=== PATIENT | male | born 1945 | race Caucasian/White ===

== ENCOUNTER → 2016-06-07 | Outpatient (CLI) | payer MEDICARE, BC ==
[2016-06-07 07:40] LABS: Appearance,Urine Clear (Clear); Bilirubin,Urine Negative (Negative); Glucose,Urine (UA) Negative (Negative); Ketones,Urine Negative (Negative); Leukocyte Esterase,Urine Large (Negative); Mucus,Urine Rare /hpf; Nitrite,Urine Negative (Negative); PH, Urine 5.5 (5.0-8.0); Particle Count 3728; Protein,Urine Trace (Negative); RBC,Urine 2 /hpf (0-5); Specific Gravity,Urine 1.021 (1.001-1.035); Squamous Epithelial Cell,Urine <1 /hpf (0-4); UA Billing (MACRO vs. MICRO) MICRO; Urobilinogen,Urine <2.0 mg/dL (<2.0); WBC,Urine 74 /hpf (0-5)
[2016-06-07 08:07] LABS: Prothrombin Time 10.1 sec (9.0-12.0)
[2016-06-07 08:14] LABS: Basophils # (A) 0.1 k/uL (0-0.2); Basophils % (A) 1 %; CH 31.2; CHCM 34.5; Eosinophils # (A) 0.4 k/uL (0-0.7); Eosinophils % (A) 8 %; HCT 44.9 % (39.0-53.0); HDW 3.19; HGB 14.8 gm/dL (13.0-17.5); Luc # (Auto) 0.13; Luc % (Auto) 3; Lymphocytes # (A) 1.1 k/uL (1.0-4.8); Lymphocytes % (A) 24 %; MCH 30.1 pg (25.0-35.0); MCHC 33.1 g/dL (31.0-37.0); Mean Platelet Volume 7.8; Monocytes # (A) 0.4 k/uL (0-1.0); Monocytes % (A) 7 %; Neutrophils # (A) 2.8 k/uL (1.3-7.7); Neutrophils % (A) 58 %; RBC 4.93 m/uL (4.30-5.90); RDW 13.9 % (11.5-15.5); WBC 4.9 k/uL (3.8-10.6); WBC (Perox) 5.05
[2016-06-07 08:34] LABS: ALT 39 U/L (21-72); AST 34 U/L (17-59); Alkaline Phosphatase 55 U/L (38-126); Anion Gap 11 mmol/L; Blood Urea Nitrogen 20 mg/dL (9-20); Calcium 9.9 mg/dL (8.4-10.2); Carbon Dioxide 31 mmol/L (22-30); Chloride 101 mmol/L (98-107); Glucose 117 mg/dL (74-99); Non-African American GFR(MDRD) >60 (>60 ml/min/1.73 sqM); Potassium 4.1 mmol/L (3.5-5.1); Sodium 143 mmol/L (137-145); Total Bilirubin 1.2 mg/dL (0.2-1.3); Total Protein 6.7 g/dL (6.3-8.2)
== END | disposition home or self-care (01) ==
LOC: LABPAT 06:34
PROVIDERS: ATTEND Orthopaedic Surgery
DX: Z01.812 Encounter for preprocedural laboratory examination (principal)
CPT/HCPCS: 80053; 81001; 85025; 85610; 85730; 87070

== ENCOUNTER 2016-06-21 10:39 | Inpatient (IN) | payer MEDICARE, BC ==
[2016-06-10 14:40] VITALS: BMI 32.5
[~2016-06-21 10:39] MED LIST: ACETAMINOPHEN TAB 500 MG TAB PO ONE; DEXAMETHASONE SOD PHOSPHATE 10 MG/ML 1 ML VIAL IV ONE; HYDROmorphone 1 MG/ML 1 ML SYRINGE IVP PRN; LIDOCAINE 1% 20 ML VIAL (10MG/ML) FOR IV START INTRADERMA PRN; MELOXICAM 7.5 MG TAB PO ONE; ONDANSETRON 4 MG/2 ML VIAL IVP ONE; TRANEXAMIC ACID 1,000 MG in SODIUM CHLORIDE 0.9% 100 ML IVPB ONE; ceFAZolin 2 GM in SODIUM CHLORIDE 0.9% 100 ML IVPB ONE
[2016-06-21] MEDS ORDERED: ROPIVACAINE 246.25 MG, EPINEPHrine 0.5 MG, KETOROLAC 30 MG, cloNIDine HCL/PF 80 MCG, WA... MISCELLANE ONE ×5 (11:25)
[2016-06-21] MEDS: LACTATED RINGERS 1,000 ML IV SCH (11:37)
[2016-06-21 12:01] LABS: Glucose,Whole Blood 105 mg/dL (75-99)
[2016-06-21] MEDS ORDERED: MIDAZOLAM 2 MG/2 ML VIAL IV ONE ×2 (12:09→12:10)
[2016-06-21] MEDS ORDERED: HYDROCORTISONE SUCCINATE 100 MG/2 ML VIAL IV ONE (12:30)
[2016-06-21] MEDS ORDERED: LIDOCAINE 1% INJ 10MG/ML (20 ML MDV) ONE (12:47)
[2016-06-21] MEDS ORDERED: fentaNYL (PF) 50 MCG/ML 2 ML AMP ONE (12:47)
[2016-06-21] MEDS ORDERED: ePHEDrine 50 MG/ML 1 ML AMP ONE (12:47)
[2016-06-21] MEDS ORDERED: PROPOFOL 10 MG/ML 20 ML VIAL IV ONE (12:47)
[2016-06-21] MEDS ORDERED: MIDAZOLAM 2 MG/2 ML VIAL ONE (12:47)
[2016-06-21] MEDS ORDERED: ceFAZolin 3,000 MG in SODIUM CHLORIDE 0.9% IRRIGATIO 3,000 ML IRRIGATION ONE (13:22)
[2016-06-21] MEDS ORDERED: LACTATED RINGERS 1,000 ML IV ONE (13:48)
[2016-06-21] MEDS ORDERED: ROPIVACAINE 1,100 MG, SODIUM CHLORIDE 0.9% 330 ML MISCELLANE PRN ×2 (14:14)
--- NOTE | 2016-06-21 14:16 | P.ONQ ---
Anesthesiology Proc Note - PNB - Peripheral Nerve Block Performed Right Adductor Canal Infusion Time Out Performed: Yes Procedure Start Time: 12:10 Procedure Stop Time: 12:20 Indication: Acute Post-Operative Pain, Requested by physician Sedation Type: Awake Preparation: Sterile Dressing Position: Supine Needle Types: Other (see comment) Needle Size: 100mm (4") Needle Gauge: 21 Technique: Ultrasound Injectate: 0.5% Ropivacaine (see comment for volume) (ropi .5 %) Blood Aspirated: No Pain Paresthesia on Injection Noted: No Resistance on Injection: Normal Events: Uneventful and Well Tolerated
--- NOTE | 2016-06-21 14:20 | P.OP ---
Date of Procedure: 06/21/16 Preoperative Diagnosis: Severe osteoarthritis right knee Postoperative Diagnosis: Severe osteoarthritis right knee Procedure(s) Performed: Right total knee arthroplasty Implants: Diallo and Nephew Oxinium femoral component size 6, right Diallo & Nephew Roseanna II right nonporous tibial baseplate size 7 Diallo & Nephew size 13 mm Legion XLPE dished articular insert, size 7-8 Diallo [employer] Nephew Roseanna II resurfacing patellar component, 35 mm All components were cemented using Fito bone cement.. The articulation is ceramic on polyethylene. Anesthesia: spinal Surgeon: Helio Camp Magazine Worker #1: Kathryn Alvarez Magazine Worker #2: Aditi Villasenor Estimated Blood Loss (ml): 50 Pathology: other (Bone and cartilage) Condition: stable Disposition: PACU Indications for Procedure: After failure of conservative treatment we discussed the surgical and nonsurgical treatment options at length. Patient wishes to proceed with a total knee arthroplasty. Complications specific to this procedure were discussed at length, including but not limited to infection, bleeding, stiffness , and nerve injury. Patient is aware of all these complications and informed consent was obtained Operative Findings: The operative findings are consistent with severe osteoarthritis of the right knee Description of Procedure: Patient was seen in the preoperative area consent was reviewed and operative site was marked with a skin marker. An adductor canal pain catheter was placed by anesthesia in the preoperative area. Patient was then brought to the operating room and given preoperative antibiotics intravenously. A spinal anesthetic was administered by the anesthesia department. A tourniquet was placed on the upper thigh and the lower extremity was prepped and draped in usual sterile fashion. A gram of transexamic acid was given. A universal timeout was then performed which confirmed the patient's name, surgical site, ALLERGIES, and consent. The lower extremity was then exsanguinated and tourniquet was inflated to 250 mmHg. A standard and anterior midline approach to the knee was performed. The skin and subcutaneous tissue was dissected down to the patellar tendon. A medial parapatellar arthrotomy was then performed. The knee was then extended, the patellar was everted, and the knee was again flexed. Anterior horns of both menisci were excised, and a release was performed to the posterior medial aspect of the knee. On gross visual inspection, there was complete loss of articular cartilage in the medial and patellofemoral joint spaces. There was also significant cartilage damage in the lateral compartment. There were multiple periarticular osteophytes which were then removed with a Ronguer. The femoral canal was then opened with the appropriate drill, and the intramedullary femoral cutting guide was then placed and set for 4 of valgus. The distal femoral cutting block was then pinned in place, and the distal femur was then cut. The cutting block was then removed and the cut was checked for flatness. Next, the sizing guide was then placed and set for 3 external rotation based off of the epicondylar axis and Whitesides line. After the femur was sized, the appropriate 4-in-1 cutting block was then pinned in place. The anterior condyles were cut without notching. The posterior and chamfer cuts were performed while protecting the collateral ligaments. The cutting block was then removed, and the femoral canal was plugged with autologous bone. Attention was then directed to the tibia. The remaining ACL was removed with a Ronguer, and the tibia was then gently subluxed forward with a large bent knee retractor. Any remaining menisci was excised. The posterior lateral corner was cauterized in order to cauterize the lateral geniculate artery. The extra medullary tibial cutting guide was then placed, set for the appropriate rotation , slope, and depth of resection. The proximal tibia cutting guide was then pinned in place. Proximal tibia was then cut and sized. Next trials were then placed with the appropriate-sized insert. The knee was able to fully extend and flex to 130 and was stable throughout all range of motion. The knee was then extended, patella everted. Patella was then measured, and then using an osteotomy guide, the patella was cut at the appropriate level. The patella was then measured and drilled and the patella trial was then placed. The knee was then taken through range of motion with the patella trial and the patella tracked normally. The knee was then extended patella trial was then removed and the patella was everted. Knee was then flexed and lug holes were drilled through the femoral trial and the femoral trial was then removed. The tibial was then exposed, and the tibial broach guide was then pinned in place after it was set for the appropriate rotation to allow for the most coverage without overhang. The tibia was then reamed and broached. The cut surfaces of bone were then irrigated with pulsatile lavage. The posterior structures were injected with the ropivacaine solution. The knee was also irrigated with Irrisept solution. The components were then opened, the cement was mixed, and the components were then cemented in place. The cement was allowed to harden with the knee in full extension. While the cement was hardening, the remaining soft tissues were then injected with a ropivacaine solution, which consisted of 246.25 mg of ropivacaine, 0.5 mg of epinephrine, 30 mg of Toradol, 80 g of clonidine, and 48.45 mL of sterile water, for a total of 100 mL of fluid injected. After the cemented hardened. The tourniquet was released, and hemostasis was obtained. A second gram of transexamic acid was given. The knee was again irrigated. The knee was again taken through range of motion and found to be stable throughout all range of motion of 0-130 , and the patella tracked normally. The fascia was then closed with #2 strata fix suture. The subcutaneous tissue was closed with 3-0 Vicryl and 3-0 strata fix. Dermabond tape was used for the skin and placed with the knee in flexion. The patient was placed in a sterile dressing. Patient was then transferred to recovery room in stable condition. The pest controller assistant ELISHA Reyes was required due the complexity surgery and the need for a skilled rn neurosurgical. She assisted in positioning, draping , retraction, and closure of the wound.
[2016-06-21] MEDS ORDERED: ONDANSETRON 4 MG/2 ML VIAL IVP PRN (14:44)
[2016-06-21] MEDS ORDERED: NA PHOS,M-B/NA PHOS,DI-BA 133 ML ENEMA RECTAL PRN (14:44)
[2016-06-21] MEDS ORDERED: BISACODYL 10 MG SUPP RECTAL PRN (14:44)
[2016-06-21] MEDS ORDERED: HYDROmorphone 1 MG/ML 1 ML SYRINGE IVP PRN ×3 (14:44)
[2016-06-21] MEDS ORDERED: hydrOXYzine PAMOATE 25 MG CAP PO PRN (14:44)
[2016-06-21] MEDS ORDERED: NALOXONE 0.4 MG/ML 1 ML VIAL IV PRN (14:44)
[2016-06-21] MEDS ORDERED: MAGNESIUM HYDROXIDE 2,400 MG/10 ML CUP PO PRN (14:44)
[2016-06-21] MEDS ORDERED: DIAZEPAM 5 MG TAB PO PRN (14:44)
[2016-06-21] MEDS ORDERED: HYDROcodone/APAP 5-325MG 1 EACH TAB PO PRN (14:44)
[2016-06-21 15:04] VITALS: RESP 16
--- NOTE | 2016-06-21 15:06 | XR ---
EXAMINATION TYPE: XR knee limited RT DATE OF EXAM: 06/21/2016 3:01 PM COMPARISON: NONE HISTORY: 71-year-old male evaluation for postoperative abnormality and alignment TECHNIQUE: 2 views FINDINGS: Images show placement of right total knee arthroplasty. Both distal femoral and proximal tibial compo nents of the prosthesis appear well seated without periprosthetic fracture. Alignment is grossly ashley omic. Anterior soft tissue swelling with soft tissue gas as well as intra-articular air and joint eff usion compatible with recent operation. IMPRESSION: Uncomplicated postoperative appearance right total knee arthroplasty.
[2016-06-21] MEDS: SODIUM CHLORIDE 0.9% 1,000 ML IV SCH (15:53)
[2016-06-21] MEDS: ceFAZolin 2 GM in SODIUM CHLORIDE 0.9% 100 ML IVPB SCH (22:00)
[2016-06-21] MEDS: SENNOSIDES-DOCUSATE SODIUM 1 EACH TAB PO SCH (22:00)
[2016-06-21] MEDS: ASPIRIN 325 MG TAB PO SCH (23:10)
[2016-06-21] MEDS: cloNIDine HCL 0.1 MG TAB PO SCH (23:10)
[2016-06-21] MEDS: CITALOPRAM HYDROBROMIDE 10 MG TAB PO SCH (23:10)
[2016-06-21] MEDS: GABAPENTIN 300 MG CAP PO SCH (23:10)
[2016-06-21] MEDS: MAGNESIUM OXIDE 400 MG TAB PO SCH (23:11)
[2016-06-21] MEDS: HYDROcodone/APAP 5-325MG 1 EACH TAB PO PRN (23:11)
[2016-06-21] MEDS: HYDROXYCHLOROQUINE SULFATE 200 MG TAB PO SCH (23:11)
[2016-06-22] MEDS: clonazePAM 0.5 MG TAB PO SCH ×2 (00:17→22:12)
[2016-06-22] MEDS: SODIUM CHLORIDE 0.9% 1,000 ML IV SCH ×2 (04:02→22:13)
[2016-06-22] MEDS: ceFAZolin 2 GM in SODIUM CHLORIDE 0.9% 100 ML IVPB SCH (04:02)
[2016-06-22] MEDS: HYDROcodone/APAP 5-325MG 1 EACH TAB PO PRN ×4 (04:47→21:57)
[2016-06-22] MEDS: LEVOTHYROXINE 50 MCG TAB PO SCH (06:03)
[2016-06-22] MEDS: LACTATED RINGERS 1,000 ML IV SCH (06:08)
[2016-06-22] MEDS ORDERED: LEVOTHYROXINE 50 MCG TAB PO SCH (06:30)
--- NOTE | 2016-06-22 07:39 | P.CONS ---
History of Present Illness - Reason for Consult Consult date: 06/21/16 Medical management Requesting physician: Helio Camp - Chief Complaint Right total knee arthroplasty, dermatomyositis, hypertension, hyperlipidemi - History of Present Illness 71-year-old male one of my office patient of known for long time with history of prostate cancer history of dermatomyositis lupus skin cancer prostate cancer was been suffering from severe arthritis and increase pain and discomfort and swelling for the last 2 years with failure to conservative management for the last 3 years. Patient had seen Dr. Camp and plan for elective right total knee arthroplasty. Surgery was done today successfully with no major complication patient is doing well postsurgery. Hemodynamically is very stable and pain is well controlled. Review of Systems Constitutional: Reports chronic pain, Reports fatigue, Reports malaise, Reports poor appetite, Reports weakness, Reports weight loss, Denies as per HPI, Denies anorexia, Denies chills, Denies chronic headaches, Denies daytime sleepiness, Denies fever, Denies lethargy, Denies night sweats, Denies sweats, Denies weight gain Eyes: bilateral as per HPI Ears: deny: decreased hearing Ears, nose, mouth and throat: Reports ant. neck pain, Reports nasal congestion, Reports sinus pressure, Denies as per HPI, Denies bleeding gums, Denies dental pain, Denies dysphagia, Denies epistaxis, Denies headache, Denies hoarseness, Denies mouth pain, Denies nasal discharge, Denies neck fullness/pressure, Denies neck lump, Denies nose pain, Denies odynophagia, Denies post-nasal drip, Denies sinus pain, Denies swelling in throat, Denies sore throat, Denies vertigo , Denies voice changes Cardiovascular: Reports decreased exercise tolerance, Reports orthopnea, Reports rapid heart beat, Reports shortness of breath, Denies as per HPI, Denies chest pain, Denies claudication, Denies dyspnea on exertion, Denies edema , Denies high blood pressure, Denies irregular heart beat, Denies leg edema, Denies lightheadedness, Denies palpitations, Denies paroxysmal nocturnal dyspnea , Denies phlebitis, Denies syncope Respiratory: Reports congestion, Denies as per HPI, Denies cough, Denies cough with sputum, Denies dyspnea, Denies excessive sputum, Denies hemoptysis, Denies home oxygen, Denies pain, Denies pain on inspiration, Denies pleurisy, Denies respiratory infections, Denies sleep apnea, Denies snoring, Denies wheezing Gastrointestinal: Reports abdominal pain, Reports dyspepsia, Reports indigestion , Reports melena, Denies as per HPI, Denies belching, Denies bloating, Denies BRBPR, Denies change in bowel habits, Denies coffee ground emesis, Denies constipation, Denies diarrhea, Denies early satiety, Denies excessive gas, Denies heartburn, Denies hematemesis, Denies hematochezia, Denies jaundice, Denies lactose intolerance, Denies loss of appetite, Denies nausea, Denies vomiting Genitourinary: Reports dysuria, Reports urinary frequency, Reports urinary hesitancy, Denies as per HPI, Denies decreased libido, Denies difficulties fathering child, Denies discharge, Denies erectile dysfunction, Denies flank pain, Denies genital pain, Denies genital sores, Denies hematuria, Denies impotence, Denies incontinence, Denies kidney stones, Denies nocturia, Denies polyuria, Denies testicular lump, Denies testicular pain, Denies urinary retention Musculoskeletal: Reports arm numbness/tingling, Reports low back pain, Reports neck pain, Denies as per HPI, Denies atrophy, Denies fractures, Denies frequent falls, Denies gait dysfunction, Denies hot joints, Denies leg numbness/tingling , Denies limitation of motion, Denies loss of height, Denies morning stiffness, Denies muscle cramps, Denies muscle weakness, Denies myalgias, Denies neck stiffness, Denies prior amputations, Denies redness of joints, Denies shooting arm pain, Denies shooting leg pain Musculoskeletal: bilateral: ankle pain Integumentary: Reports rash, Reports sores, Denies as per HPI, Denies acne, Denies boils, Denies brittle nails, Denies change in hair/nails, Denies color changes, Denies darkening of skin, Denies depigmentation, Denies dryness, Denies foot/leg ulcers, Denies growths, Denies hirsutism, Denies lesions, Denies onychomycosis, Denies pruritus, Denies striae, Denies unusual bruising, Denies wounds Neurological: Reports ataxia, Reports numbness, Reports paresthesias, Reports syncope, Reports tingling, Denies as per HPI, Denies aphasia, Denies balance difficulties, Denies burning pain, Denies change in mentation, Denies change in smell/taste, Denies change in speech, Denies confusion, Denies convulsions, Denies double vision, Denies gait dysfunction, Denies head injury, Denies headaches, Denies hearing difficulties, Denies lack of coordination, Denies loss of vision, Denies memory loss, Denies migraines, Denies motor disturbance, Denies paralysis, Denies seizures, Denies sensory deficit, Denies spasticity, Denies tic, Denies transient paralysis, Denies tremors, Denies vertigo, Denies weakness, Denies visual changes Psychiatric: Reports anhedonia, Reports anxiety, Reports anxiety attacks, Reports depression, Reports mood swings, Denies as per HPI, Denies change in appetite, Denies change in libido, Denies change in sleep habits, Denies confusion, Denies difficulty concentrating, Denies disorientation, Denies hallucinations, Denies hopelessness, Denies hypersomnia, Denies insomnia, Denies irritability, Denies memory loss, Denies paranoia, Denies sadness/ tearfulness, Denies sleep disturbances, Denies suicidal ideation Endocrine: Reports cold intolerance, Reports polyuria, Reports proptosis, Denies as per HPI, Denies deepening of the voice, Denies excessive sweating, Denies excessive thirst, Denies fatigue, Denies flushing, Denies heat intolerance, Denies high blood sugars, Denies increase in ring/shoe/hat size, Denies low blood sugars, Denies nocturia, Denies palpitations, Denies polydipsia , Denies polyphagia, Denies recent glucocorticoid use, Denies thyroid mass, Denies weight change Hematologic/Lymphatic: Reports easy bruising Allergic/Immunologic: Denies as per HPI, Denies allergic rhinitis, Denies anaphylaxis, Denies angioedema, Denies gluten intolerance, Denies persistent infections, Denies seasonal allergies, Denies urticaria, Denies wheezing Past Medical History Past Medical History: Cancer, Hypertension, Prostate Disorder Additional Past Medical History / Comment(s): dermatomyositis lupus,daily prednisone,basal cell skin Ca removed,enlarged prostate,stated "recent ceftin tx for UTI-seen by Dr Mena and UA repeated-cleared on 06-16-16" History of Any Multi-Drug Resistant Organisms: None Reported Past Surgical History: Hernia Repair, Joint Replacement, Orthopedic Surgery Additional Past Surgical History / Comment(s): muscle bx's,rt tot hip,rt knee scope,rt inguinal and umbilical hernia repair,rt hand carpel tunnel x2,lt hand carpel tunnel,hemorrhoidectomy Past Anesthesia/Blood Transfusion Reactions: No Reported Reaction Additional Past Anesthesia/Blood Transfusion Reaction / Comm: no hx blood transfusion Past Psychological History: Depression Smoking Status: Former smoker Past Alcohol Use History: Occasional Additional Past Alcohol Use History / Comment(s): quit smoking 1997,smoked 1ppd 15 yrs approx Past Drug Use History: None Reported - Past Family History Mother Family Medical History: No Reported History Father Family Medical History: Cancer Medications and Allergies Home Medications Medication Instructions Recorded Confirmed Type Allopurinol [Allopurinol] 300 mg PO QAM 06/10/16 06/21/16 History Aspirin 81 mg PO DAILY 06/10/16 06/21/16 History Calcium Carbonate/Vitamin D3 2 tab PO DAILY 06/10/16 06/21/16 History [Calcium 600-Vit D3 400 Caplet] Citalopram Hydrobromide [CeleXA] 10 mg PO HS 06/10/16 06/21/16 History Folic Acid 0.4 mg PO DAILY 06/10/16 06/21/16 History Gabapentin [Neurontin] 300 mg PO BID 06/10/16 06/21/16 History Hydroxychloroquine Sulfate 200 mg PO BID 06/10/16 06/21/16 History [Plaquenil] Levothyroxine Sodium [Synthroid] 50 mcg PO QAM 06/10/16 06/21/16 History Losartan/Hydrochlorothiazide 1 tab PO QAM 06/10/16 06/21/16 History [Hyzaar 100-25 Tablet] Magnesium Oxide [Mag-Ox] 400 mg PO HS 06/10/16 06/21/16 History cloNIDine HCL [Catapres] 0.1 mg PO BID 06/10/16 06/21/16 History clonazePAM [KlonoPIN] 0.5 mg PO HS 06/10/16 06/21/16 History predniSONE 5 mg PO QAM 06/10/16 06/21/16 History Allergies Allergy/AdvReac Type Severity Reaction Status Date / Time No Known Allergies Allergy Verified 06/21/16 15:12 Physical Exam Vitals: Vital Signs Temp Pulse Pulse Resp BP BP Pulse Ox 06/21/16 15:48 98 06/21/16 15:28 80 16 121/59 97 06/21/16 15:13 76 16 134/56 97 06/21/16 14:58 88 16 121/62 98 06/21/16 14:43 98.6 F 80 18 132/83 93 L 06/21/16 11:38 98.3 F 82 16 133/76 96 Intake and Output 06/21/16 06/21/16 06/21/16 06:59 14:59 22:59 Intake Total 1501 50 Output Total 50 Balance 1451 50 Intake: IV 1501 50 Output: Estimated Blood Loss 50 - Constitutional General appearance: no average body habitus, cooperative, no disheveled, no mild distress, no morbidly obese, no acute distress, no obese, no severe distress, no thin - EENT Eyes: no abnormal pupil, no anicteric sclerae, no disc margins sharp, no edentulous, no EOMI, no PERRLA, no fundus normal, no photophobia, no dentition normal, no poor dentition, no ptosis, no scleral icterus, normal appearance ENT: hard of hearing, no hearing grossly normal, no NA/AT, normal oropharynx, no other, no pharyngeal erythema, no thrush, no tonsillar exudates, no tonsillar swelling Ears: bilateral: normal - Neck Neck: no lymphadenopathy, normal ROM, no other, no rigidity, no stridor, no thyromegaly Carotids: bilateral: upstroke normal, upstroke delayed Thyroid: bilateral: normal size, enlarged - Respiratory Respiratory: bilateral: CTA, diminished, dullness - Cardiovascular Rhythm: regular Heart sounds: normal: S1, S2 Abnormal Heart Sounds: systolic murmur, S3 Gallop - Gastrointestinal General gastrointestinal: no absent bowel sounds, decreased bowel sounds, no distended, no hepatomegaly, no hyperactive bowel sounds, no normal bowel sounds , no organomegaly, no rigid, no scaphoid, soft, no splenomegaly, no tenderness, no umbilical hernia, no ventral hernia - Integumentary Integumentary: no calor, no cellulitis, no cyanotic, no decreased turgor, no flushed, no jaundiced, normal, no normal turgor, pale, rash, no ulcer - Neurologic Neurologic: CNII-XII intact - Musculoskeletal Musculoskeletal: gait normal, generalized weakness - Psychiatric Psychiatric: A&O x's 3, appropriate affect Results Labs: Abnormal Lab Results - Last 24 Hours (Table) 06/21/16 Range/Units 11:52 POC Glucose (mg/dL) 105 H (75-99) mg/dL Assessment and Plan Plan: 1 post right total knee arthroplasty: Stable post surgery resume home meds, continue to watch patient hemodynamic status, continue to watch patient control and patient will be on DVT phylaxis protocol. 2 history of dermatomyositis: Has been well controlled on prednisone 5 mg a day and Plaquenil 200 mg twice a day resume medication 48 hours. Continue prednisone as of now with mildly stress dose of prednisone between 10 and 20 mg daily. 3 hypertension: Has been doing well on Hyzaar 100/25 g a day along with clonidine 0.2 mg twice a day. 4 hypothyroidism: Continue levothyroxine 50 g daily. 5 restless leg syndrome: Has been on clonazepam 0.5 mg twice a day as needed. 6 neuropathy: Has been on gabapentin 300 mg twice a day. 7 depression: Continue patient on Celexa 10 mg daily. 8 GI prophylaxis: Patient be on Pepcid 20 mg daily. 9 chronic steroid use. Patient will be on prednisone 10-20 mg daily for the first 48 hours and then down to 5 mg as before. CODE STATUS: Full code. Dr. Camp thank you very much for the consult if I can be any further help to please let me know thank you
[2016-06-22] MEDS: ASPIRIN 325 MG TAB PO SCH ×2 (08:09→22:52)
[2016-06-22] MEDS: GABAPENTIN 300 MG CAP PO SCH ×2 (08:09→22:12)
[2016-06-22] MEDS: ALLOPURINOL 300 MG TAB PO SCH (08:09)
[2016-06-22] MEDS: cloNIDine HCL 0.1 MG TAB PO SCH ×2 (08:09→22:12)
[2016-06-22] MEDS: HYDROXYCHLOROQUINE SULFATE 200 MG TAB PO SCH ×2 (08:09→22:12)
--- NOTE | 2016-06-22 08:09 | P.PN ---
Progress Note - Text The patient is status post right adductor canal catheter placement. The catheter was placed for postoperative pain control, status post total right arthroplasty. Ropivacaine 0.2% is infusing at 8 mLs per hour. The patient has no complaints of right lower extremity numbness or weakness. Patient's VAS score is 0-1-10. Assessment: Patient's adductor canal catheter is in place and working appropriately. Plan: continue infusion and adjust it as needed.
[2016-06-22] MEDS: MELOXICAM 7.5 MG TAB PO SCH (08:10)
[2016-06-22] MEDS: predniSONE 10 MG TAB PO SCH (08:10)
[2016-06-22] MEDS: LOSARTAN-HCTZ 50-12.5 MG 1 EACH TAB PO SCH (08:11)
[2016-06-22] MEDS: CALCIUM CARB-VIT D 500MG-200UN 1 EACH TAB PO SCH (08:11)
[2016-06-22] MEDS: FOLIC ACID 1 MG TAB PO SCH (08:11)
[2016-06-22 08:19] LABS: Basophils % (A) 1 %; CH 31.5; CHCM 34.2; Eosinophils # (A) 0.2 k/uL (0-0.7); Eosinophils % (A) 3 %; HCT 40.7 % (39.0-53.0); HDW 3.25; HGB 13.7 gm/dL (13.0-17.5); Luc # (Auto) 0.15; Luc % (Auto) 2; Lymphocytes # (A) 1.1 k/uL (1.0-4.8); Lymphocytes % (A) 15 %; MCH 31.2 pg (25.0-35.0); MCHC 33.6 g/dL (31.0-37.0); MCV 92.7 fL (80.0-100.0); Mean Platelet Volume 7.3; Monocytes # (A) 0.5 k/uL (0-1.0); Monocytes % (A) 8 %; Neutrophils # (A) 5.1 k/uL (1.3-7.7); Neutrophils % (A) 72 %; RBC 4.39 m/uL (4.30-5.90); RDW 13.8 % (11.5-15.5); WBC 7.1 k/uL (3.8-10.6)
--- NOTE | 2016-06-22 13:46 | P.PN ---
Subjective 71-year-old male one of my office patient of known for long time with history of prostate cancer history of dermatomyositis lupus skin cancer prostate cancer was been suffering from severe arthritis and increase pain and discomfort and swelling for the last 2 years with failure to conservative management for the last 3 years. Patient had seen Dr. Camp and plan for elective right total knee arthroplasty. Surgery was done today successfully with no major complication patient is doing well postsurgery. Hemodynamically is very stable and pain is well controlled. 06/22: Hemoglobin is stable. He does have a right adductor canal catheter in place for pain management and pain is well controlled. He states he did very well with physical therapy today. Patient will plan to resume prednisone 5 mg at the time of discharge. Discharge is scheduled for tomorrow. Objective - Vital Signs Vital signs: Vital Signs Temp 97.5 F L 06/22/16 07:34 Pulse 71 06/22/16 07:34 Resp 16 06/22/16 07:34 BP 114/66 06/22/16 07:34 Pulse Ox 95 06/22/16 07:34 Intake & Output 06/21/16 06/22/16 06/22/16 18:59 06:59 18:59 Intake Total 1551 1190 240 Output Total 50 Balance 1501 1190 240 Intake: IV 1551 600 Sodium Chloride 0.9% 1, 600 000 ml @ 75 mls/hr IV . [id number] [facility] Rx#:[id number] Oral 590 240 Output: Estimated Blood Loss 50 Other: Voiding Method Urinal Toilet Urinal # Voids 2 2 - Exam General appearance: no average body habitus, cooperative, no disheveled, no mild distress, no morbidly obese, no acute distress, no obese, no severe distress, no thin - EENT Eyes: no abnormal pupil, no anicteric sclerae, no disc margins sharp, no edentulous, no EOMI, no PERRLA, no fundus normal, no photophobia, no dentition normal, no poor dentition, no ptosis, no scleral icterus, normal appearance ENT: hard of hearing, no hearing grossly normal, no NA/AT, normal oropharynx, no other, no pharyngeal erythema, no thrush, no tonsillar exudates, no tonsillar swelling Ears: bilateral: normal - Neck Neck: no lymphadenopathy, normal ROM, no other, no rigidity, no stridor, no thyromegaly Carotids: bilateral: upstroke normal, upstroke delayed Thyroid: bilateral: normal size, enlarged - Respiratory Respiratory: bilateral: CTA, diminished, dullness - Cardiovascular Rhythm: regular Heart sounds: normal: S1, S2 Abnormal Heart Sounds: systolic murmur, S3 Gallop - Gastrointestinal General gastrointestinal: no absent bowel sounds, decreased bowel sounds, no distended, no hepatomegaly, no hyperactive bowel sounds, no normal bowel sounds , no organomegaly, no rigid, no scaphoid, soft, no splenomegaly, no tenderness, no umbilical hernia, no ventral hernia - Integumentary Integumentary: no calor, no cellulitis, no cyanotic, no decreased turgor, no flushed, no jaundiced, normal, no normal turgor, pale, rash, no ulcer - Neurologic Neurologic: CNII-XII intact - Musculoskeletal Musculoskeletal: gait normal, generalized weakness - Psychiatric Psychiatric: A&O x's 3, appropriate affect - Labs CBC & Chem 7: 06/22/16 07:59 Labs: Abnormal Lab Results - Last 24 Hours (Table) 06/21/16 06/22/16 Range/Units 11:52 07:59 Plt Count 102 L (150-450) k/uL POC Glucose (mg/dL) 105 H (75-99) mg/dL Assessment and Plan Plan: 1 post right total knee arthroplasty: Stable post surgery resume home meds, continue to watch patient hemodynamic status, continue to watch patient control and patient will be on DVT phylaxis protocol. 2 history of dermatomyositis: Has been well controlled on prednisone 5 mg a day and Plaquenil 200 mg twice a day resume medication 48 hours. Continue prednisone as of now with mildly stress dose of prednisone between 10 and 20 mg daily. 3 hypertension: Has been doing well on Hyzaar 100/25 g a day along with clonidine 0.2 mg twice a day. 4 hypothyroidism: Continue levothyroxine 50 g daily. 5 restless leg syndrome: Has been on clonazepam 0.5 mg twice a day as needed. 6 neuropathy: Has been on gabapentin 300 mg twice a day. 7 depression: Continue patient on Celexa 10 mg daily. 8 GI prophylaxis: Patient be on Pepcid 20 mg daily. 9 chronic steroid use. Patient will be on prednisone 10-20 mg daily for the first 48 hours and then down to 5 mg as before. CODE STATUS: Full code. Discharge plan: Home with [facility] tomorrow Impression and plan of care have been directed as dictated by the signing physician. Katerine Baer nurse practitioner acting as scribe for signing physician. Time with Patient: Greater than 30
--- NOTE | 2016-06-22 15:30 | P.PN ---
Subjective Principal diagnosis: Status post right total knee arthroplasty This is a pleasant 71-year-old gentleman who is status post right total knee arthroplasty. Today's postoperative day #1. The patient is seen and evaluated at bedside with Dr. Helio Camp. He does complain of some posterior pain in his lower extremity. His pain is under better control. He developed physical therapy today. He has no additional complaints this time. Objective - Vital Signs Vital signs: Vital Signs Temp 98.2 F 06/22/16 13:16 Pulse 80 06/22/16 13:16 Resp 16 06/22/16 13:16 BP 128/51 06/22/16 13:16 Pulse Ox 92 L 06/22/16 13:16 Intake & Output 06/21/16 06/22/16 06/22/16 18:59 06:59 18:59 Intake Total 1551 1190 480 Output Total 50 Balance 1501 1190 480 Intake: IV 1551 600 Sodium Chloride 0.9% 1, 600 000 ml @ 75 mls/hr IV . [id number] Rx#:[id number] Oral 590 480 Output: Estimated Blood Loss 50 Other: Voiding Method Urinal Toilet Urinal # Voids 2 2 - Exam The patient does not appear in acute distress. Alert and orientated 3. Dressing is clean dry and intact. Incision appears fine with no erythema or active drainage. Calf is soft and nontender. Good foot and ankle motion without difficulty. Sensation and circulatory status is intact. - Labs CBC & Chem 7: 06/22/16 07:59 Labs: Abnormal Lab Results - Last 24 Hours (Table) 06/22/16 Range/Units 07:59 Plt Count 102 L (150-450) k/uL Assessment and Plan (1) Primary osteoarthritis of right knee Status: Acute (2) Status post right knee replacement Status: Acute Plan: 1. Continue with routine postoperative care. 2. Anticoagulation with aspirin. 3. Physical therapy and CPM today. 4. Appreciate input from medicine. 5. Anticipate discharge to home with home care likely tomorrow.
[2016-06-22 21:29] LABS: Glucose,Whole Blood 88 mg/dL (75-99)
[2016-06-22] MEDS: SENNOSIDES-DOCUSATE SODIUM 1 EACH TAB PO SCH (22:12)
[2016-06-22] MEDS: MAGNESIUM OXIDE 400 MG TAB PO SCH (22:12)
[2016-06-22] MEDS: CITALOPRAM HYDROBROMIDE 10 MG TAB PO SCH (22:12)
[2016-06-23] MEDS: HYDROcodone/APAP 5-325MG 1 EACH TAB PO PRN ×2 (03:50→14:23)
[2016-06-23] MEDS: LACTATED RINGERS 1,000 ML IV SCH (05:53)
[2016-06-23] MEDS: LEVOTHYROXINE 50 MCG TAB PO SCH (05:54)
[2016-06-23] MEDS: SODIUM CHLORIDE 0.9% 1,000 ML IV SCH (06:12)
--- NOTE | 2016-06-23 07:50 | P.PN ---
Progress Note - Text 0714 anesthesia POD 2. Patient is status post right TKR under spinal anesthesia with a right adductor canal catheter placed for postoperative pain relief. With ropivacaine 0.2% running at 10 mL per hour the patient reports a VAS of (2, 4). Catheter site is clean dry and intact.
[2016-06-23 09:27] VITALS: BP 126/72; PULSE 81; TEMP 97.6
[2016-06-23] MEDS: LOSARTAN-HCTZ 50-12.5 MG 1 EACH TAB PO SCH (09:27)
[2016-06-23] MEDS: ASPIRIN 325 MG TAB PO SCH (09:27)
[2016-06-23] MEDS: cloNIDine HCL 0.1 MG TAB PO SCH (09:28)
[2016-06-23] MEDS: GABAPENTIN 300 MG CAP PO SCH (09:28)
[2016-06-23] MEDS: CALCIUM CARB-VIT D 500MG-200UN 1 EACH TAB PO SCH (09:29)
[2016-06-23] MEDS: ALLOPURINOL 300 MG TAB PO SCH (09:29)
[2016-06-23] MEDS: MELOXICAM 7.5 MG TAB PO SCH (09:29)
[2016-06-23] MEDS: HYDROXYCHLOROQUINE SULFATE 200 MG TAB PO SCH (09:29)
[2016-06-23] MEDS: FOLIC ACID 1 MG TAB PO SCH (09:29)
[2016-06-23] MEDS: predniSONE 10 MG TAB PO SCH (09:35)
--- NOTE | 2016-06-23 13:58 | US ---
EXAMINATION TYPE: US venous doppler duplex LE RT DATE OF EXAM: 06/23/2016 1:45 PM COMPARISON: NONE CLINICAL HISTORY: edema, s/p sx. Rt leg swelling post right knee replacement surgery on 06/21/2016 SIDE PERFORMED: Right TECHNIQUE: The lower extremity deep venous system is examined utilizing real time linear array sonog yefri with graded compression, Doppler sonography and color-flow sonography. VESSELS IMAGED: Common Femoral Vein Deep Femoral Vein Greater Saphenous Vein * Femoral Vein Popliteal Vein Small Saphenous Vein * Proximal Calf Veins (* superficial vessels) Right Leg: Negative for DVT IMPRESSION: No evidence for DVT at this time
--- NOTE | 2016-06-23 14:02 | P.PN ---
Subjective 71-year-old male one of my office patient of known for long time with history of prostate cancer history of dermatomyositis lupus skin cancer prostate cancer was been suffering from severe arthritis and increase pain and discomfort and swelling for the last 2 years with failure to conservative management for the last 3 years. Patient had seen Dr. Camp and plan for elective right total knee arthroplasty. Surgery was done today successfully with no major complication patient is doing well postsurgery. Hemodynamically is very stable and pain is well controlled. 06/22: Hemoglobin is stable. He does have a right adductor canal catheter in place for pain management and pain is well controlled. He states he did very well with physical therapy today. Patient will plan to resume prednisone 5 mg at the time of discharge. Discharge is scheduled for tomorrow. 06/23: Patient is scheduled for discharge today. He does state that he had an episode of lightheadedness which is resolved. Pump was increased last evening. Due to increased edema to the right leg, ultrasound was ordered which was negative for DVT. Patient will be discharged home today in stable condition. Objective - Vital Signs Vital signs: Vital Signs Temp 97.6 F 06/23/16 07:00 Pulse 81 06/23/16 07:00 Resp 16 06/23/16 07:00 BP 126/72 06/23/16 07:00 Pulse Ox 96 06/23/16 07:00 Intake & Output 06/22/16 06/23/16 06/23/16 18:59 06:59 18:59 Intake Total 480 1190 Output Total 120 Balance 480 1070 Intake: IV 600 Sodium Chloride 0.9% 1, 600 000 ml @ 75 mls/hr IV . [id number] [facility] Rx#:[id number] Oral 480 590 Output: Urine 120 Other: Voiding Method Toilet Toilet Toilet Urinal Urinal Urinal # Voids 2 2 - Exam General appearance: no average body habitus, cooperative, no disheveled, no mild distress, no morbidly obese, no acute distress, no obese, no severe distress, no thin - EENT Eyes: no abnormal pupil, no anicteric sclerae, no disc margins sharp, no edentulous, no EOMI, no PERRLA, no fundus normal, no photophobia, no dentition normal, no poor dentition, no ptosis, no scleral icterus, normal appearance ENT: hard of hearing, no hearing grossly normal, no NA/AT, normal oropharynx, no other, no pharyngeal erythema, no thrush, no tonsillar exudates, no tonsillar swelling Ears: bilateral: normal - Neck Neck: no lymphadenopathy, normal ROM, no other, no rigidity, no stridor, no thyromegaly Carotids: bilateral: upstroke normal, upstroke delayed Thyroid: bilateral: normal size, enlarged - Respiratory Respiratory: bilateral: CTA, diminished, dullness - Cardiovascular Rhythm: regular Heart sounds: normal: S1, S2 Abnormal Heart Sounds: systolic murmur, S3 Gallop - Gastrointestinal General gastrointestinal: no absent bowel sounds, decreased bowel sounds, no distended, no hepatomegaly, no hyperactive bowel sounds, no normal bowel sounds , no organomegaly, no rigid, no scaphoid, soft, no splenomegaly, no tenderness, no umbilical hernia, no ventral hernia - Integumentary Integumentary: no calor, no cellulitis, no cyanotic, no decreased turgor, no flushed, no jaundiced, normal, no normal turgor, pale, rash, no ulcer - Neurologic Neurologic: CNII-XII intact - Musculoskeletal Musculoskeletal: gait normal, generalized weakness - Psychiatric Psychiatric: A&O x's 3, appropriate affect - Labs CBC & Chem 7: 06/22/16 07:59 Assessment and Plan Plan: 1 post right total knee arthroplasty: Stable post surgery resume home meds, continue to watch patient hemodynamic status, continue to watch patient control and patient will be on DVT phylaxis protocol. 2 history of dermatomyositis: Has been well controlled on prednisone 5 mg a day and Plaquenil 200 mg twice a day resume medication 48 hours. Continue prednisone as of now with mildly stress dose of prednisone between 10 and 20 mg daily. 3 hypertension: Has been doing well on Hyzaar 100/25 g a day along with clonidine 0.2 mg twice a day. 4 hypothyroidism: Continue levothyroxine 50 g daily. 5 restless leg syndrome: Has been on clonazepam 0.5 mg twice a day as needed. 6 neuropathy: Has been on gabapentin 300 mg twice a day. 7 depression: Continue patient on Celexa 10 mg daily. 8 GI prophylaxis: Patient be on Pepcid 20 mg daily. 9 chronic steroid use. Patient will be on prednisone 10-20 mg daily for the first 48 hours and then down to 5 mg as before. CODE STATUS: Full code. Discharge plan: Home with [facility] tomorrow Impression and plan of care have been directed as dictated by the signing physician. Katerine Baer nurse practitioner acting as scribe for signing physician. Time with Patient: Greater than 30
--- NOTE | 2016-08-12 10:21 | DS ---
DATE OF ADMISSION: 06/21/2016 DATE OF DISCHARGE: 06/23/2016 ADMITTING AND DISCHARGE DIAGNOSIS: Primary osteoarthritis right knee, status post right total knee arthroplasty. SURGICAL PROCEDURE: Right total knee arthroplasty. CONSULTATIONS: Dr. Escalante for medical management. HOSPITAL COURSE: This is a pleasant 71-year-old gentleman last seen in our office with complaints of right knee pain. After discussion and consideration, the patient elected to proceed with a right total knee arthroplasty. The patient was seen preoperatively and medically cleared for surgery by his primary care physician. Patient was admitted to [facility] on 06/21/2016 and underwent right total knee arthroplasty. The procedure was performed without complications or sequelae. The patient did well postoperatively. His pain was under fair control. He was seen and evaluated at bedside with Dr. Helio Camp on day of discharge. He was progressing with physical therapy. He had no new complaints at that time. He did have an episode of lightheadedness overnight, which resolved. Ultrasound was negative for DVT. The patient was orthopedically stable for discharge to home. Please refer to discharge instructions for further instructions.
== END 2016-06-23 14:26 | disposition home health service (06) | DRG 470 ==
LOC: 2ORMAIN 10:39 → 3SUR 14:40
PROVIDERS: ADMIT Orthopaedic Surgery; ATTEND Orthopaedic Surgery
PROC: 0SRC0J9 Replacement of Right Knee Joint with Synthetic Substitute, Cemented, Open Approach (ICD-10-PCS; principal; 2016-06-21 12:45)
DX: M17.11 Unilateral primary osteoarthritis, right knee (principal); M33.90 Dermatopolymyositis, unspecified, organ involvement unspecified; G62.9 Polyneuropathy, unspecified; I10 Essential (primary) hypertension; F32.9 Major depressive disorder, single episode, unspecified; Z87.891 Personal history of nicotine dependence; Z79.82 Long term (current) use of aspirin; Z79.899 Other long term (current) drug therapy; Z79.52 Long term (current) use of systemic steroids; E03.9 Hypothyroidism, unspecified; G25.81 Restless legs syndrome; Z85.46 Personal history of malignant neoplasm of prostate; Z85.828 Personal history of other malignant neoplasm of skin
CPT/HCPCS: 85025; 88300; 94760

== ENCOUNTER → 2016-08-03 | Outpatient (CLI) | payer MEDICARE, BC ==
[2016-08-03 10:31] LABS: Blood Urea Nitrogen 17 mg/dL (9-20); Non-African American GFR(MDRD) >60 (>60 ml/min/1.73 sqM)
--- NOTE | 2016-08-03 12:12 | CT ---
EXAMINATION TYPE: CT angio thoracic/abd aorta DATE OF EXAM: 08/03/2016 COMPARISON: CTA aorta June 10, 2015. HISTORY: Patient has no complaints at time of study. Follow up study for known AAA. CT DLP: 1542.6 mGycm. Automated Exposure Control for Dose Reduction was Utilized. CONTRAST: CT scan of the thorax, abdomen and upper pelvis are performed without oral and without and with IV Co ntrast, patient injected with 100 mL of Omnipaque 350. Three-D reconstructed images are created on in dependent workstation and reviewed FINDINGS: VASCULAR: Ascending aorta measures up to 3.7 cm in diameter on axial image 63 felt not significantly changed from prior study axial image 30 right measures 3.6 cm. No aneurysmal change to the aortic arc h or descending aorta is identified. There is mild calcified plaque in the distal abdominal aorta red emonstrated. Mild to minimal calcified plaque extends into bilateral common iliac arteries. There is patency of the great 3 vessels from aortic arch without significant plaque or stenosis. There is montejo nt celiac access, SMA, PAULINE, and right single renal artery. There is accessory left renal artery with mild calcified plaque at origin of superior left renal artery. There is patent bilateral internal and external iliac arteries without significant stenosis. LUNGS: The lungs are grossly clear, there is no concerning parenchymal mass or nodule identified. T here is no pleural effusion or pneumothorax seen. The tracheobronchial tree is patent. MEDIASTINUM: There are no greater than 1 cm hilar or mediastinal lymph nodes. No cardiomegaly or pe ricardial effusion is seen. OTHER: No additional significant abnormality is seen. LIVER/GB: No significant abnormality is appreciated. PANCREAS: No significant abnormality is seen. SPLEEN: Spleen remains enlarged at 15.3 cm on long axis on coronal image 26. ADRENALS: Nonspecific slight thickening to both adrenal glands is recess demonstrated favored benign. KIDNEYS: There is redemonstration of 1.5 cm simple appearing cyst lower pole level right kidney. Ther e are now 2 adjacent small calculi lower pole level left kidney measuring up to 4 mm in size seen bes t on axial image 203. BOWEL: No significant abnormality is seen. LYMPH NODES: No greater than 1cm abdominal or upper pelvic lymph nodes are appreciated. OSSEOUS STRUCTURES: Multilevel spurring in the thoracolumbar spine is redemonstrated. Slight scolioti c curvature is again seen. OTHER: No significant additional abnormality is seen. IMPRESSION: Stable ectasia to ascending aorta. No new aneurysm identified.
== END | disposition home or self-care (01) ==
LOC: RADCTMAIN 09:54
PROVIDERS: ATTEND Internal Medicine Interventional Cardiology
DX: I77.810 Thoracic aortic ectasia (principal)
CPT/HCPCS: 82565; 84520; 75635; 71275; 36415; Q9967

== ENCOUNTER 2016-10-13 09:44 | Day surgery (SDC) | payer MEDICARE, BC ==
[2016-10-08 09:05] VITALS: BMI 31.8
[~2016-10-13 09:44] MED LIST changes: -ACETAMINOPHEN TAB 500 MG TAB PO ONE; -DEXAMETHASONE SOD PHOSPHATE 10 MG/ML 1 ML VIAL IV ONE; -HYDROmorphone 1 MG/ML 1 ML SYRINGE IVP PRN; +LACTATED RINGERS 1,000 ML IV SCH; -MELOXICAM 7.5 MG TAB PO ONE; +MOXIFLOXACIN HCL 0.5% DROPS 3 ML BTL OP ONE; -ONDANSETRON 4 MG/2 ML VIAL IVP ONE; +TETRACAINE 0.5% OPHTH (PF) DROPS 4 ML BTL OP ONE; +TIMOLOL 0.5% OPHTH SOLN (PF) 0.2 ML DROPERETTE OP ONE; -TRANEXAMIC ACID 1,000 MG in SODIUM CHLORIDE 0.9% 100 ML IVPB ONE; -ceFAZolin 2 GM in SODIUM CHLORIDE 0.9% 100 ML IVPB ONE
[2016-10-13] MEDS: CYCLOPENTOLATE 1% OPHTH SOLN 2 ML BTL OP ONE ×3 (12:01→12:15)
[2016-10-13] MEDS: PHENYLEPHRINE 2.5% OPHTH DRP 2ML OP NR ×3 (12:05→12:18)
[2016-10-13 12:08] VITALS: RESP 16; TEMP 98.4
[2016-10-13 12:15] LABS: Glucose,Whole Blood 104 mg/dL (75-99)
[2016-10-13] MEDS ORDERED: HYALURONATE SODIUM INTRAOCULAR 1 EACH SYRINGE (12MG/ML) INTRAOCULA ONE (13:09)
[2016-10-13] MEDS ORDERED: BALANCED SALT IRRIG SOLN COMB2 15 ML IRRIG.SOLN IRRIGATION ONE (13:09)
[2016-10-13] MEDS ORDERED: LIDOCAINE 1% (PF) 10MG/ML VIAL MISCELLANE ONE (13:09)
[2016-10-13] MEDS ORDERED: MIDAZOLAM 2 MG/2 ML VIAL ONE (13:11)
[2016-10-13] MEDS ORDERED: fentaNYL (PF) 50 MCG/ML 2 ML AMP ONE (13:11)
[2016-10-13] MEDS ORDERED: EPINEPHrine (PF) 0.3 ML in BALANCED SALT IRRIG SOLN COMB2 500 ML IRRIGATION ONE (13:12)
--- NOTE | 2016-10-13 13:42 | P.OP ---
Date of Procedure: 10/13/16 Preoperative Diagnosis: NS Postoperative Diagnosis: same Procedure(s) Performed: PIOL, OS Implants: PCB00 18.50 Anesthesia: MAC Surgeon: Olaf Melara Estimated Blood Loss (ml): 0 Pathology: none sent Condition: stable Disposition: same day Indications for Procedure: blurry vision Operative Findings: no complications Description of Procedure:
[2016-10-13 14:01] VITALS: BP 130/63; PULSE 81
--- NOTE | 2016-10-14 09:17 | OP ---
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 POSTOPERATIVE DIAGNOSIS: Same. OPERATION: Clear cornea phacoemulsification of cataract and intraocular lens implant of the left eye. ESTIMATED BLOOD LOSS: Zero. SPECIMEN TAKEN: None. NARRATIVE: After obtaining the appropriate consent, the patient was brought to the Operating Room where the patient was placed under cardiac monitoring and prepped and draped in the usual sterile manner. At the 5 oclock position a 15 degree super sharp blade was used to create a paracentesis followed by instillation of 1% Xylocaine MPF 50:50 mix with BSS into the anterior chamber. This was followed by Amvisc to stabilize the anterior chamber. At the 3 o clock position a self-sealing corneal flap incision was created using 2.8 mm kay keratome. A cystatome was used to initiate a continuous tear capsulorrhexis which was completed with the Utrata forceps. A Binkhorst cannula was used to hydrodissect the lens nucleus followed by hydrodelineation. Phacoemulsification of the lens was performed utilizing phacochop in 16.53 seconds at 10% power. The remaining cortical material was removed using the irrigation aspiration mode followed by additional 1% Xylocaine MPF into the anterior chamber followed by viscoelastic to stabilize the capsular bag. An [id number] 18.5 diopter posterior chamber lens was placed into the capsular bag without difficulty. The remaining viscoelastic material was removed from the anterior chamber with the irrigation/aspiration. Balanced salt solution was used to normalize the intraocular pressure. The incision was checked for watertight integrity. The patient then received two drops of 0.5% timolol followed by two drops Vigamox, was lightly patched and shielded in the usual manner. There were no complications from the procedure. The patient tolerated the procedure well and was returned to recovery in good condition. PAUL
== END 2016-10-13 14:22 | disposition home or self-care (01) ==
LOC: OR 09:44
PROVIDERS: ATTEND Ophthalmology
DX: H25.13 Age-related nuclear cataract, bilateral (principal); M33.90 Dermatopolymyositis, unspecified, organ involvement unspecified; H43.393 Other vitreous opacities, bilateral; H52.13 Myopia, bilateral; H52.4 Presbyopia; H00.023 Hordeolum internum right eye, unspecified eyelid; H00.026 Hordeolum internum left eye, unspecified eyelid; B36.9 Superficial mycosis, unspecified; M10.9 Gout, unspecified; I10 Essential (primary) hypertension; E03.9 Hypothyroidism, unspecified; Z87.891 Personal history of nicotine dependence; Z79.52 Long term (current) use of systemic steroids; Z79.899 Other long term (current) drug therapy; Z79.82 Long term (current) use of aspirin

== ENCOUNTER 2016-11-03 07:15 | Day surgery (SDC) | payer MEDICARE, BC ==
[2016-10-28 15:27] VITALS: BMI 31.8
[~2016-11-03 07:15] MED LIST changes: -LIDOCAINE 1% 20 ML VIAL (10MG/ML) FOR IV START INTRADERMA PRN
[2016-11-03] MEDS: CYCLOPENTOLATE 1% OPHTH SOLN 2 ML BTL OP ONE ×2 (07:48→07:59)
[2016-11-03] MEDS: PHENYLEPHRINE 2.5% OPHTH DRP 2ML OP NR ×3 (07:51→08:03)
[2016-11-03] MEDS ORDERED: LIDOCAINE 1% 20 ML VIAL (10MG/ML) FOR IV START INTRADERMA ONE (08:13)
[2016-11-03 08:16] LABS: Glucose,Whole Blood 132 mg/dL (75-99)
[2016-11-03 08:17] VITALS: TEMP 98
[2016-11-03] MEDS ORDERED: MIDAZOLAM 2 MG/2 ML VIAL ONE (08:38)
[2016-11-03] MEDS ORDERED: fentaNYL (PF) 50 MCG/ML 2 ML AMP ONE (08:38)
[2016-11-03] MEDS ORDERED: HYALURONATE SODIUM INTRAOCULAR 1 EACH SYRINGE (12MG/ML) INTRAOCULA ONE (08:49)
[2016-11-03] MEDS ORDERED: LIDOCAINE 1% (PF) 10MG/ML VIAL MISCELLANE ONE (08:50)
[2016-11-03] MEDS ORDERED: BALANCED SALT IRRIG SOLN COMB2 15 ML IRRIG.SOLN INTRAOCULA ONE (08:50)
[2016-11-03] MEDS ORDERED: EPINEPHrine (PF) 0.3 ML in BALANCED SALT IRRIG SOLN COMB2 500 ML IRRIGATION ONE (08:52)
--- NOTE | 2016-11-03 09:03 | P.OP ---
Date of Procedure: 11/03/16 Preoperative Diagnosis: NS & CS Postoperative Diagnosis: same Procedure(s) Performed: PIOL, OD Implants: PCB00 18.00 Anesthesia: MAC Surgeon: Olaf Melara Estimated Blood Loss (ml): 0 Pathology: none sent Condition: stable Disposition: same day Indications for Procedure: blurry vision Operative Findings: no complications Description of Procedure:
[2016-11-03 09:24] VITALS: BP 138/63; PULSE 61; RESP 16
--- NOTE | 2016-11-04 13:57 | OP ---
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 Nuclear sclerosis. 2. Cortical sclerosis. POSTOPERATIVE DIAGNOSIS:: Same. OPERATION:: Phacoemulsification of cataract and intraocular lens implant of the right eye. ESTIMATED BLOOD LOSS:: Zero. SPECIMEN TAKEN:: None. NARRATIVE:: After obtaining the appropriate consent, the patient was brought to the Operating Room where the patient was placed under cardiac monitoring and prepped and draped in the usual sterile manner. At the 11 o'clock position, a 15 degree super sharp blade was used to create a paracentesis followed by instillation of 1% Xylocaine MPF 50:50 mix with BSS into the anterior chamber. This was followed by Amvisc to stabilize the anterior chamber. At the 9 o'clock position, a self-sealing corneal flap incision was created using 2.8 mm kay keratome. A cystatome was used to initiate a continuous tear capsulorrhexis which was completed with the Utrata forceps. A Binkhorst cannula was used to hydrodissect the lens nucleus followed by hydrodelineation. Phacoemulsification of the lens was performed utilizing phacochop in 12.16 seconds at 9% power. The remaining cortical material was removed using the irrigation aspiration mode followed by additional 1% Xylocaine MPF into the anterior chamber followed by viscoelastic to stabilize the capsular bag. An ROYER PCB00 18.0 diopter posterior chamber lens was placed into the capsular bag without difficulty. The remaining viscoelastic material was removed from the anterior chamber with the irrigation/aspiration. Balanced salt solution was used to normalize the intraocular pressure. The incision was checked for watertight integrity. The patient then received two drops of 0.5% timolol followed by two drops Vigamox, was lightly patched and shielded in the usual manner. There were no complications from the procedure. The patient tolerated the procedure well and was returned to recovery in good condition. MMODL / IJN: [id number] /
== END 2016-11-03 09:37 | disposition home or self-care (01) ==
LOC: OR 07:15
PROVIDERS: ATTEND Ophthalmology
DX: H25.11 Age-related nuclear cataract, right eye (principal); H16.223 Keratoconjunctivitis sicca, not specified as Sjogren's, bilateral; H43.393 Other vitreous opacities, bilateral; M33.90 Dermatopolymyositis, unspecified, organ involvement unspecified; M32.9 Systemic lupus erythematosus, unspecified; H52.13 Myopia, bilateral; H52.4 Presbyopia; H00.026 Hordeolum internum left eye, unspecified eyelid; H00.023 Hordeolum internum right eye, unspecified eyelid; Z87.891 Personal history of nicotine dependence; I10 Essential (primary) hypertension; M10.9 Gout, unspecified; E03.9 Hypothyroidism, unspecified; Z79.52 Long term (current) use of systemic steroids; Z79.899 Other long term (current) drug therapy

== ENCOUNTER 2017-06-02 06:30 | Day surgery (SDC) | payer MEDICARE, BC ==
[~2017-06-02 06:30] MED LIST changes: +LIDOCAINE 1% 20 ML VIAL (10MG/ML) FOR IV START INTRADERMA PRN; -MOXIFLOXACIN HCL 0.5% DROPS 3 ML BTL OP ONE; -TETRACAINE 0.5% OPHTH (PF) DROPS 4 ML BTL OP ONE; -TIMOLOL 0.5% OPHTH SOLN (PF) 0.2 ML DROPERETTE OP ONE
[2017-06-02 07:06] VITALS: TEMP 98.6
[2017-06-02 07:14] LABS: Glucose,Whole Blood 141 mg/dL (75-99)
[2017-06-02] MEDS ORDERED: PROPOFOL 10 MG/ML 20 ML VIAL IV ONE (07:54)
--- NOTE | 2017-06-02 07:59 | P.GSHP ---
History of Present Illness H&P Date: 06/02/17 Chief Complaint: Screening colonoscopy This a 72-year-old male referred from Dr. Escalante. Patient rents today for screening colonoscopy. He denies any significant GI complaints. Past Medical History Past Medical History: Cancer, Eye Disorder, Hypertension, Osteoarthritis (OA), Prostate Disorder Additional Past Medical History / Comment(s): Dermatomyositis lupus, daily prednisone X15-16 yrs, basal cell skin Ca removed, enlarged prostate, bilateral cataracts, calcified aortic valve, dry eyes. History of Any Multi-Drug Resistant Organisms: None Reported Past Surgical History: Hernia Repair, Joint Replacement, Orthopedic Surgery Additional Past Surgical History / Comment(s): Muscle bx's, left total hip, right knee scope, right inguinal and umbilical hernia repair, right hand carpel tunnel x2, left hand carpel tunnel, hemorrhoidectomy, right knee replaced, cataract surg. Past Anesthesia/Blood Transfusion Reactions: No Reported Reaction Additional Past Anesthesia/Blood Transfusion Reaction / Comment(s): no hx blood transfusion Past Psychological History: Depression Smoking Status: Former smoker Past Alcohol Use History: Occasional Additional Past Alcohol Use History / Comment(s): quit smoking 1997, smoked 1ppd for 15 yrs approx Past Drug Use History: None Reported - Past Family History Mother Family Medical History: No Reported History Father Family Medical History: Cancer Medications and Allergies Home Medications Medication Instructions Recorded Confirmed Type Allopurinol [Allopurinol] 300 mg PO QAM 06/10/16 06/02/17 History Aspirin 81 mg PO DAILY 06/10/16 06/02/17 History Citalopram Hydrobromide [CeleXA] 10 mg PO HS 06/10/16 06/02/17 History Folic Acid 0.4 mg PO DAILY 06/10/16 06/02/17 History Gabapentin [Neurontin] 300 mg PO BID 06/10/16 06/02/17 History Hydroxychloroquine Sulfate 200 mg PO BID 06/10/16 06/02/17 History [Plaquenil] Levothyroxine Sodium [Synthroid] 50 mcg PO QAM 06/10/16 06/02/17 History Losartan/Hydrochlorothiazide 1 tab PO QAM 06/10/16 06/02/17 History [Hyzaar 100-25 Tablet] Magnesium Oxide [Mag-Ox] 400 mcg PO HS 06/10/16 06/02/17 History cloNIDine HCL [Catapres] 0.1 mg PO BID 06/10/16 06/02/17 History predniSONE 5 mg PO QAM 06/10/16 06/02/17 History Allergies Allergy/AdvReac Type Severity Reaction Status Date / Time No Known Allergies Allergy Verified 05/30/17 12:10 Surgical - Exam Vital Signs Temp Pulse Resp BP Pulse Ox 98.6 F 97 20 140/67 93 L 06/02/17 07:04 06/02/17 07:04 06/02/17 07:04 06/02/17 07:04 06/02/17 07:04 - General well developed, no distress - Eyes PERRL - ENT normal pinna - Neck no masses - Respiratory normal expansion - Cardiovascular Rhythm: regular - Abdomen Abdomen: soft, non tender Results - Labs Abnormal Lab Results - Last 24 Hours (Table) 06/02/17 Range/Units 07:12 POC Glucose (mg/dL) 141 H (75-99) mg/dL Assessment and Plan Assessment: We'll perform screening colonoscopy.
--- NOTE | 2017-06-02 08:23 | P.OP ---
Date of Procedure: 06/02/17 Preoperative Diagnosis: Screening colonoscopy Postoperative Diagnosis: Diverticulosis Procedure(s) Performed: Colonoscopy Anesthesia: MAC Surgeon: Isidro Miranda Pathology: none sent Condition: stable Disposition: PACU Description of Procedure: The patient's placed on the endoscopy table in the lateral position. He received IV sedation. Digital rectal exam was performed which revealed no abnormalities. Flexible colonoscope was then placed patient anus passed throughout the entire colon. The ileocecal valve was visually is. The cecum, ascending and transverse colon appeared normal. Scope was then brought back into the descending and sigmoid colon and there was extensive diverticular changes. Scope was then brought back the rectum and this appeared normal. Scope was withdrawn for patient.
[2017-06-02 08:34] VITALS: BP 146/76; PULSE 82; RESP 18
== END 2017-06-02 08:48 | disposition home or self-care (01) ==
LOC: ORWHC2ENDO 06:30
PROVIDERS: ATTEND Surgery
DX: Z12.11 Encounter for screening for malignant neoplasm of colon (principal); K57.30 Diverticulosis of large intestine without perforation or abscess without bleeding; I10 Essential (primary) hypertension; F32.9 Major depressive disorder, single episode, unspecified; I70.0 Atherosclerosis of aorta; M19.90 Unspecified osteoarthritis, unspecified site; N40.0 Benign prostatic hyperplasia without lower urinary tract symptoms; M32.9 Systemic lupus erythematosus, unspecified; Z79.82 Long term (current) use of aspirin; Z85.828 Personal history of other malignant neoplasm of skin; Z96.651 Presence of right artificial knee joint; Z87.891 Personal history of nicotine dependence; Z79.52 Long term (current) use of systemic steroids; Z79.899 Other long term (current) drug therapy
CPT/HCPCS: J2704; G0121

== ENCOUNTER → 2017-08-30 | Outpatient (CLI) | payer MEDICARE, BC ==
[2017-08-30 13:17] LABS: Blood Urea Nitrogen 16 mg/dL (9-20)
--- NOTE | 2017-08-30 14:26 | CT ---
EXAMINATION TYPE: CT angio chest DATE OF EXAM: 08/30/2017 COMPARISON: CTA aorta August 03, 2016 HISTORY: Aortic aneurysm without rupture CT DLP: 442 mGycm. Automated Exposure Control for Dose Reduction was Utilized. CONTRAST: CTA scan of the thorax is performed with IV Contrast, patient injected with 100 ml mL of Isovue 370, aneurysm protocol. Three-D reconstructed images are created on independent workstation and reviewed. FINDINGS: Entire lung apices are not included making evaluation suboptimal. LUNGS: The visualized lungs are grossly clear, there is no concerning parenchymal mass or nodule iden tified. There is no pleural effusion or pneumothorax seen. The tracheobronchial tree is patent. MEDIASTINUM: There is satisfactory enhancement of the pulmonary artery and its branches, there is no CT evidence for pulmonary embolism. There are no greater than 1 cm hilar or mediastinal lymph nodes. No cardiomegaly or pericardial effusion is seen. Ascending aorta measures up to 3.7 cm in diameter axial image 18 not significantly changed from prior CT. There is minimal noncalcified plaque in the aortic arch. No aneurysm extension into arch or descending aorta is seen. No linear hypodensity to [place] ggest dissection is identified. Minimal coronary artery calcification remains present. OTHER: Liver remains hypodense suggesting fatty infiltration. There is moderate to severe multilevel anterior and lateral spurring in the thoracic spine with mild to moderate multilevel disc space narro wing. IMPRESSION: Stable 3.7 cm ectasia to the ascending aorta. No significant change from prior.
== END | disposition home or self-care (01) ==
LOC: RADCTMAIN 12:43
PROVIDERS: ATTEND Internal Medicine Interventional Cardiology
DX: I77.810 Thoracic aortic ectasia (principal)
CPT/HCPCS: 82565; 84520; 71275; 36415; Q9967

== ENCOUNTER 2018-08-17 10:50 | Emergency (ER) | payer MEDICARE, BC ==
[2018-08-17 11:10] VITALS: RESP 18; TEMP 99
--- NOTE | 2018-08-17 11:58 | ED ---
General Adult HPI - General Chief complaint: Upper Respiratory Infection Stated complaint: Cough, SOB Time Seen by Provider: 08/17/18 11:00 Source: patient, RN notes reviewed Mode of arrival: ambulatory Limitations: no limitations - History of Present Illness Initial comments: This is a 73-year-old male who presents emergency room stating over the last couple of weeks an upper respiratory infection he has been coughing and coughing up some sputum. Patient states she also has some facial pressure as well which feels like a sinusitis she's had many years ago. Patient states she's a little bit short of breath particularly when he is coughing. Patient denies any chest pain or palpitations. Patient denies any fever or chills. Patient states he h as lupus and has a hard time getting over some of these illnesses and after 2 weeks she decided come in and be evaluated. Patient denies any sore throat patient denies any ear pain. Patient denies headache patient denies any numbness or weakness. Patient denies any abdominal pain. Patient denies any nausea vomiting diarrhea. - Related Data Home Medications Medication Instructions Recorded Confirmed Allopurinol 300 mg PO QAM 06/10/16 06/02/17 Aspirin 81 mg PO DAILY 06/10/16 06/02/17 Citalopram Hydrobromide [CeleXA] 10 mg PO HS 06/10/16 06/02/17 Folic Acid 0.4 mg PO DAILY 06/10/16 06/02/17 Gabapentin [Neurontin] 300 mg PO BID 06/10/16 06/02/17 Hydroxychloroquine Sulfate 200 mg PO BID 06/10/16 06/02/17 [Plaquenil] Levothyroxine Sodium [Synthroid] 50 mcg PO QAM 06/10/16 06/02/17 Losartan/Hydrochlorothiazide 1 tab PO QAM 06/10/16 06/02/17 [Hyzaar 100-25 Tablet] Magnesium Oxide [Mag-Ox] 400 mcg PO HS 06/10/16 06/02/17 cloNIDine HCL [Catapres] 0.1 mg PO BID 06/10/16 06/02/17 predniSONE 5 mg PO QAM 06/10/16 06/02/17 Previous Rx's Medication Instructions Recorded Amoxicillin/Potassium Clav 1 each PO Q12HR #28 tab 08/17/18 [Augmentin 875-125 Tablet] Allergies Allergy/AdvReac Type Severity Reaction Status Date / Time No Known Allergies Allergy Verified 08/17/18 11:10 Review of Systems ROS Statement: Those systems with pertinent positive or pertinent negative responses have been documented in the HPI. ROS Other: All systems not noted in ROS Statement are negative. Past Medical History Past Medical History: Cancer, Eye Disorder, Hypertension, Osteoarthritis (OA), Prostate Disorder Additional Past Medical History / Comment(s): Dermatomyositis lupus, daily prednisone X15-16 yrs, basal cell skin Ca removed, enlarged prostate, bilateral cataracts, calcified aortic valve, dry eyes. History of Any Multi-Drug Resistant Organisms: None Reported Past Surgical History: Hernia Repair, Joint Replacement, Orthopedic Surgery Additional Past Surgical History / Comment(s): Muscle bx's, left total hip, right knee scope, right inguinal and umbilical hernia repair, right hand carpel tunnel x2, left hand carpel tunnel, hemorrhoidectomy, right knee replaced, cataract surg. Past Anesthesia/Blood Transfusion Reactions: No Reported Reaction Additional Past Anesthesia/Blood Transfusion Reaction / Comment(s): no hx blood transfusion Past Psychological History: Depression Smoking Status: Former smoker Past Alcohol Use History: Occasional Past Drug Use History: None Reported - Past Family History Mother Family Medical History: No Reported History Father Family Medical History: Cancer General Exam - General Exam Comments Initial Comments: GENERAL: Patient is well-developed and well-nourished. Patient is nontoxic and well- hydrated and is in mild distress. ENT: Neck is soft and supple. No significant lymphadenopathy is noted. Oropharynx is clear. Moist mucous membranes. Neck has full range of motion without eliciting any pain. Patient has maxillary sinus tenderness with palpation EYES: The sclera were anicteric and conjunctiva were pink and moist. Extraocular movements were intact and pupils were equal round and reactive to light. Eyelids were unremarkable. PULMONARY: Unlabored respirations. Good breath sounds bilaterally. No audible rales rhonchi or wheezing was noted. CARDIOVASCULAR: There is a regular rate and rhythm without any murmurs gallops or rubs. ABDOMEN: Soft and nontender with normal bowel sounds. SKIN: Skin is clear with no lesions or rashes and otherwise unremarkable. NEUROLOGIC: Patient is alert and oriented x3. Cranial nerves II through XII are grossly intact. Motor and sensory are also intact. Normal speech, volume and content. Symmetrical smile. MUSCULOSKELETAL: Normal extremities with adequate strength and full range of motion. LYMPHATICS: No significant lymphadenopathy is noted PSYCHIATRIC: Normal psychiatric evaluation. Limitations: no limitations Course Vital Signs 08/17/18 08/17/18 11:08 12:00 Temperature 99.0 F Pulse Rate 76 65 Respiratory 18 18 Rate Blood Pressure 149/70 136/75 O2 Sat by Pulse 96 96 Oximetry Medical Decision Making - Medical Decision Making EKG shows sinus rhythm with 63 bpm DC interval 216 QRS is 108 QT interval 428 QTC is 437. Patient's EKG shows no ST segment elevation or depression or T wave abnormalities are noted. Chest x-ray shows no acute abnormality. Because the patient facial tenderness and felt as though his head was congested I determined the patient should be treated after weeks of having the symptoms for sinusitis. Disposition Clinical Impression: Sinusitis Disposition: HOME SELF-CARE Condition: Good Instructions (If sedation given, give patient instructions): Sinusitis (ED) Prescriptions: Amoxicillin/Potassium Clav [Augmentin 875-125 Tablet] 1 each PO Q12HR #28 tab Is patient prescribed a controlled substance at d/c from ED?: No Referrals: Cristiano Escalante MD [Primary Care Provider] - 1-2 days Time of Disposition: 13:14
[2018-08-17 12:34] VITALS: BP 136/75; PULSE 65
--- NOTE | 2018-08-17 12:55 | XR ---
EXAMINATION TYPE: XR chest 2V DATE OF EXAM: 08/17/2018 COMPARISON: NONE TECHNIQUE: PA and lateral views submitted. HISTORY: Difficulty breathing FINDINGS: The lungs are clear and there is no pneumothorax, pleural effusion, or focal pneumonia. Hypertrophi c and degenerative change of the spine. No overt failure. IMPRESSION: 1. No acute process.
== END 2018-08-17 13:30 | disposition home or self-care (01) ==
LOC: EC 10:50
DX: J32.9 Chronic sinusitis, unspecified (principal); I10 Essential (primary) hypertension; M19.90 Unspecified osteoarthritis, unspecified site; F32.9 Major depressive disorder, single episode, unspecified; Z85.828 Personal history of other malignant neoplasm of skin; Z96.651 Presence of right artificial knee joint; Z87.891 Personal history of nicotine dependence; Z79.82 Long term (current) use of aspirin; Z79.890 Hormone replacement therapy; Z79.52 Long term (current) use of systemic steroids; Z79.899 Other long term (current) drug therapy
CPT/HCPCS: 71046; 99285

== ENCOUNTER → 2018-08-25 | Outpatient (CLI) | payer MEDICARE, BC ==
[2018-08-25 11:33] LABS: African American GFR (CKD) >90 (>60 ml/min/1.73 sqM); Blood Urea Nitrogen 20 mg/dL (9-20)
--- NOTE | 2018-08-25 12:44 | CT ---
EXAMINATION TYPE: CT angio chest DATE OF EXAM: 08/25/2018 COMPARISON: Prior CT angiogram the chest 08/30/2017 HISTORY: Thoracic aortic aneurysm CT DLP: 490 mGycm Automated exposure control for dose reduction was used. CONTRAST: CTA scan of the thorax is performed with IV Contrast, patient injected with 100 mL of Isovue 370, pul monary embolism protocol. MIP images are created and reviewed. 3D reconstructed images are created on an independent workstation and reviewed. FINDINGS: LUNGS: The lungs are grossly clear, there is no concerning parenchymal mass or nodule identified. T here is no pleural effusion or pneumothorax seen. The tracheobronchial tree is patent. AORTA: Aortic root measures approximately 3.9 cm, proximal ascending aorta measures 4.1 cm. Possible descending aorta 3.2 cm, the aorta at the level the hiatus is measuring 2.7 cm MEDIASTINUM: There is satisfactory enhancement of the pulmonary artery and its branches, there is no CT evidence for pulmonary embolism. There are no greater than 1 cm hilar or mediastinal lymph nodes. No pericardial effusion is seen. OTHER: Liver shows low attenuation possibly due to hepatic steatosis, similar to prior exam. Hypertr ophic spondylosis in the thoracic spine. Stable right adrenal gland, there is a low dense focus which may represent an adenoma associated with the right adrenal gland measuring only 12 to 13 mm IMPRESSION: AORTIC MEASUREMENTS DESCRIBED.
== END | disposition home or self-care (01) ==
LOC: RADCTMAIN 10:04
PROVIDERS: ATTEND Internal Medicine Interventional Cardiology
DX: I71.2 Thoracic aortic aneurysm, without rupture (principal)
CPT/HCPCS: 82565; 84520; 71275; 36415; Q9967

== ENCOUNTER → 2019-09-24 | Outpatient (CLI) | payer MEDICARE, BC ==
[2019-09-24 11:21] LABS: African American GFR (CKD) >90 (>60 ml/min/1.73 sqM); Blood Urea Nitrogen 24 mg/dL (9-20); Non-African American GFR(CKD) >90 (>60 ml/min/1.73 sqM)
--- NOTE | 2019-09-24 14:11 | CT ---
EXAMINATION TYPE: CT angio chest DATE OF EXAM: 09/24/2019 COMPARISON: 08/25/2018 HISTORY: 74-year-old male with thoracic aortic aneurysm, I71.2 TECHNIQUE: Contiguous axial scanning of the chest performed without and with IV Contrast, patient inj ected with 100 ml mL of Isovue 370. Coronal/sagittal MIP reconstructions performed. 3-D reconstructio ns generated on a dedicated independent workstation. CT DLP: 906 mGycm Automated exposure control for dose reduction was used. FINDINGS: Heart normal size without pericardial effusion. Aortic root is ectatic at 3.8 cm, unchanged. Ascending aorta ectatic at 3.9 cm, unchanged. Conventional arthrosis of branching anatomy. Upper descending thoracic aorta is ectatic at 3.1 cm, unchanged. Borderline ectatic at the lower descending thoracic aorta at 2.8 cm, unchanged. Ectatic at the diaphragmatic hiatus at 2.9 cm, unchanged. No evidence for aortic dissection or acute intramural hematoma. No thoracic lymphadenopathy by CT size criteria. No consolidation or pleural effusion. Mild low-density thickening of the left adrenal gland is unchanged. Low-attenuation of the liver sugg esting fatty infiltration. Bones: DISH throughout the thoracic spine. IMPRESSION: 1. STABLE ECTATIC THORACIC AORTA (ASCENDING MEASURING UP TO 3.9 CM AND DESCENDING MEASURING UP TO 3.1 CM). 2. HEPATIC STEATOSIS.
== END ==
LOC: RADCTMAIN 10:10
PROVIDERS: ATTEND Internal Medicine Interventional Cardiology
DX: I71.2 Thoracic aortic aneurysm, without rupture (principal); K76.0 Fatty (change of) liver, not elsewhere classified
CPT/HCPCS: 82565; 84520; 71275; 36415; Q9967

== ENCOUNTER → 2020-09-09 | Outpatient (CLI) | payer MEDICARE, BC ==
[2020-09-09 09:12] LABS: African American GFR (CKD) >90 (>60 ml/min/1.73 sqM); Blood Urea Nitrogen 21 mg/dL (9-20); Non-African American GFR(CKD) 89 (>60 ml/min/1.73 sqM)
--- NOTE | 2020-09-09 11:59 | CT ---
EXAMINATION TYPE: CT angio chest DATE OF EXAM: 09/09/2020 11:05 AM COMPARISON: CTA Chest 09/24/2019 and older studies. HISTORY: Thoracic aortic aneurysm, without rupture CT DLP: 944 mGycm Automated exposure control for dose reduction was used. CONTRAST: CTA scan of the thorax is performed without and with IV Contrast, patient injected with 100 ml mL of Isovue 370, aneurysm protocol. 3D reconstructed images are created on an independent workstation and reviewed.. FINDINGS: LUNGS: The lungs remain grossly clear, there is no concerning parenchymal mass or nodule identified. There is no pleural effusion or pneumothorax seen. The tracheobronchial tree is patent. MEDIASTINUM: There is satisfactory enhancement of the central pulmonary arteries. There are no great er than 1 cm hilar or mediastinal lymph nodes. No cardiomegaly or pericardial effusion is seen. The re is 4.1 cm aneurysm at aortic root coronal image 15. No hyperdensity on noncontrast images to sugge st intramural hematoma. No aneurysm extension into the remainder of the aorta. OTHER: Slight scoliotic curvature with multilevel spurring in the spine. Sclerosis and narrowing upp er thoracic spine redemonstrated. IMPRESSION: There is 4.1 cm aneurysm of the aortic root not significantly changed from most recent CT accounting for technical differences.
== END | disposition home or self-care (01) ==
LOC: RADCTMAIN 08:26
PROVIDERS: ATTEND Internal Medicine Interventional Cardiology
DX: I71.2 Thoracic aortic aneurysm, without rupture (principal)
CPT/HCPCS: 82565; 84520; 71275; 36415; Q9967

== ENCOUNTER → 2021-09-11 | Outpatient (CLI) | payer MEDICARE, BC ==
[2021-09-11 13:58] LABS: African American GFR (CKD) >90 (>60 ml/min/1.73 sqM); Blood Urea Nitrogen 21 mg/dL (9-20); Non-African American GFR(CKD) 86 (>60 ml/min/1.73 sqM)
--- NOTE | 2021-09-11 15:06 | CT ---
EXAMINATION TYPE: CT angio chest DATE OF EXAM: 09/11/2021 2:47 PM COMPARISON: 09/09/2020 HISTORY: thoraciic aneurysm CT DLP: 1025.1 mGycm Automated exposure control for dose reduction was used. CONTRAST: CTA scan of the thorax is performed without and with IV Contrast, patient injected with 100 mL of Iso chilango 370, pulmonary embolism protocol. 3-D postprocessing was performed.. FINDINGS: LUNGS: The lungs are grossly clear, there is no concerning parenchymal mass or nodule identified. T here is no pleural effusion or pneumothorax seen. The tracheobronchial tree is patent. MEDIASTINUM: There is satisfactory enhancement of the pulmonary artery and its branches, there is no CT evidence for pulmonary embolism. There are no greater than 1 cm hilar or mediastinal lymph nodes. No pericardial effusion is seen. There is a stable mild fusiform aneurysmal dilatation of the ascending thoracic aorta measuring 4.1 c m. IMPRESSION: 1. STABLE MILD FUSIFORM ANEURYSMAL DILATATION OF THE ASCENDING THORACIC AORTA WHICH MEASURES 4.1 CM. 2. NO ACUTE CARDIOPULMONARY DISEASE.
== END | disposition home or self-care (01) ==
LOC: RADCTMAIN 13:05
PROVIDERS: ATTEND Internal Medicine Interventional Cardiology
DX: I71.2 Thoracic aortic aneurysm, without rupture (principal)
CPT/HCPCS: 82565; 84520; 71275; 36415; Q9967

== ENCOUNTER → 2021-10-30 | Outpatient (CLI) | payer MEDICARE, BC ==
--- NOTE | 2021-10-30 12:13 | BD ---
EXAMINATION TYPE: Axial Bone Density DATE OF EXAM: 10/30/2021 COMPARISON: NONE CLINICAL HISTORY: 76 year old Male. ICD-10 CODE: N81.0 Osteoporosis Height: 69 Weight: 227.7 FRAX RISK QUESTIONS: Alcohol (3 or more units per day): no Family History (Parent hip fracture): no Glucocorticoids (More than 3mos): yes (Ex: prednisone, prednisolone, methylprednisolone, dexamethasone, and hydrocortisone). History of Fracture in Adulthood: yes Secondary Osteoporosis: 1. Type 1 Diabetes: no 2. Hyperthyroidism: no 3. Menopause before 45: n/a 4. Malnutrition: no 5. Chronic liver disease: no Rheumatoid Arthritis: no Current Tobacco Use: no RISK FACTORS HISTORY OF: Surgery to Spine/Hip(right/left)/Wrist (right/left): left hip When: 10 years ago Family History of Osteoporosis: no Active: yes Diet low in dairy products/other sources of calcium: no Lost more than 2 inches in height since high school: no MEDICATIONS: Prednisone or other steroids: yes Thyroid Medications: thyroid How Lon years Additional History: EXAM MEASUREMENTS: Bone mineral densitometry was performed using the [employer] System. Bone mineral density as measured about the Lumbar spine is: ----- L1-L4(G/cm2): 1.566 T Score Values are as follows: ----- L1: 3.6 ----- L2: 2.4 ----- L3: 1.6 ----- L4: 5.5 ----- L1-L4: 3.2 Bone mineral density has: increased 8.8 % since study of: 09.14.2007 Bone mineral density about the R hip (g/cm2): 0.901 T Score values are as follows: -----R Neck: -1.0 -----R Total: 0.7 Bone mineral density has: decreased -2.9 % since study of: 09.14.2007 FRAX%s: The graph provided illustrates a 13.4% chance for a major osteoporotic fx and a 4.2% chance f or the hips probability for fx in 10 years time. IMPRESSION: Normal (Values between +1 and -1 indicate normal bone mass). Consider repeating this study in 5 year s or sooner if there is some new clinical indication. NOTE: T-SCORE=SD OF THE YOUNG ADULT MEAN.
== END | disposition home or self-care (01) ==
LOC: RADBDWWP 07:52
PROVIDERS: ATTEND Internal Medicine Geriatric Medicine
DX: M81.0 Age-related osteoporosis without current pathological fracture (principal)
CPT/HCPCS: 77080

== ENCOUNTER → 2021-12-08 | Outpatient (CLI) | payer MEDICARE, BC ==
[2021-12-08 10:03] LABS: African American GFR (CKD) >90 (>60 ml/min/1.73 sqM); Blood Urea Nitrogen 22 mg/dL (9-20); Non-African American GFR(CKD) 87 (>60 ml/min/1.73 sqM)
--- NOTE | 2021-12-08 12:15 | CT ---
EXAMINATION TYPE: CT urogram wo/w con CT DLP: 3744 mGycm, Automated exposure control for dose reduction was used. DATE OF EXAM: 12/08/2021 11:57 AM COMPARISON: CTA chest abdomen pelvis 08/03/2016. CLINICAL INDICATION:Male, 76 years old with history of R31.0 hematuria; TECHNIQUE: Urogram was performed before and after the uneventful administration of 100 cc of Isovue-300 intraven ously. Delayed imaging was obtained. Coronal and sagittal reformats were performed. One or more CT do se reduction strategies were utilized during this examination. 2D and 3D reconstructions are performe d to assist visualization of the urinary tract on a separate workstation. FINDINGS: GENITOURINARY: RIGHT KIDNEY AND URETER: No calculi. No hydronephrosis or hydroureter. Right lower pole 3.1 cm simple cyst. Additional right mid kidney 1.1 cm cyst. No urothelial lesions: no filling defect, dilation, s tricture or wall thickening. LEFT KIDNEY AND URETER: There are 2 calculi within the inferior pole of the left kidney with largest measuring 5 mm. No hydronephrosis or hydroureter. No renal mass or other lesions. No urothelial lesio ns: no filling defect, dilation, stricture or wall thickening. URINARY BLADDER: Not optimally distended. No gross evidence of calculi or mass. REPRODUCTIVE: Evaluation is limited due to left hip prosthesis streak artifact. The prostate appears enlarged measuring up to 7.3 cm. Prostate calcifications identified. This indents upon the urinary bl adder base.. ABDOMEN LIVER: Diffusely hypoattenuating, consistent with hepatic steatosis.. GALLBLADDER AND BILE DUCTS: Unremarkable PANCREAS: Unremarkable. SPLEEN: Unremarkable. ADRENAL GLANDS: Nonspecific thickening of the bilateral adrenal glands, possibly related to adrenal h yperplasia. STOMACH AND BOWEL: Distal colonic diverticulosis without evidence for acute diverticulitis. The appen rebecca is within normal limits. No evidence of bowel obstruction. PERITONEUM: No evidence of pneumoperitoneum, free fluid, or adenopathy. VASCULATURE: Mild atherosclerotic calcification of the aorta and its branches. No abdominal aortic an eurysm. MUSCULOSKELETAL: No acute osseous abnormality. No aggressive osseous lesion. Postsurgical changes fro m left total hip arthroplasty. Degenerative changes of visualized spine. Multilevel Schmorl's nodes. SOFT TISSUE/ABDOMINAL WALL: Unremarkable. LOWER CHEST: Mild cardiomegaly. Aortic valvular calcifications. The visualized lung bases are clear. IMPRESSION: 1. No evidence of urolithiasis or concerning renal/urothelial neoplasm. The urinary bladder is not we ll distended which limits evaluation. 2. Nonobstructive left renal calculi. 3. Enlarged prostate gland which indents upon the bladder base. Correlation with PSA is recommended. 4. Colonic diverticulosis without evidence for acute diverticulitis.
== END ==
LOC: RADCTMAIN 09:21
PROVIDERS: ATTEND Urology
DX: N20.0 Calculus of kidney (principal); N40.0 Benign prostatic hyperplasia without lower urinary tract symptoms; K57.30 Diverticulosis of large intestine without perforation or abscess without bleeding
CPT/HCPCS: 82565; 84520; 74178; 74400; Q9967

== ENCOUNTER 2023-02-19 11:52 | Emergency (ER) | payer MEDICARE, BC ==
[2023-02-19 12:01] VITALS: TEMP 97.8
--- NOTE | 2023-02-19 12:46 | ED ---
General Adult HPI - General Chief complaint: Extremity Injury, Upper Stated complaint: Post OP Issues Time Seen by Provider: 02/19/23 12:06 Source: patient, family, RN notes reviewed Mode of arrival: ambulatory Limitations: no limitations - History of Present Illness Initial comments: Patient is a pleasant 78-year-old male presenting to the emergency department with concern for left wrist problems. Patient states 11 days ago he did have carpal tunnel surgery done here with Dr. Moore. Patient states today he slipped and fell. Patient landed on outstretched left hand. Patient states his incision did open at that time. No concerns for pain. There was bleeding. Patient did apply wrapped. Patient states area was glued shut, not sutured secondary to history of similar problems with sutures previously. - Related Data Home Medications Medication Instructions Recorded Confirmed Aspirin 81 mg PO DAILY 06/10/16 06/02/17 Citalopram Hydrobromide [CeleXA] 10 mg PO HS 06/10/16 06/02/17 Folic Acid 0.4 mg PO DAILY 06/10/16 06/02/17 Gabapentin [Neurontin] 300 mg PO BID 06/10/16 06/02/17 Hydroxychloroquine Sulfate 200 mg PO BID 06/10/16 06/02/17 [Plaquenil] Levothyroxine Sodium [Synthroid] 50 mcg PO QAM 06/10/16 06/02/17 Losartan/Hydrochlorothiazide 1 tab PO QAM 06/10/16 06/02/17 [Hyzaar 100-25 Tablet] Magnesium Oxide [Mag-Ox] 400 mcg PO HS 06/10/16 06/02/17 allopurinoL [Allopurinol] 300 mg PO QAM 06/10/16 06/02/17 cloNIDine HCL [Catapres] 0.1 mg PO BID 06/10/16 06/02/17 predniSONE 5 mg PO QAM 06/10/16 06/02/17 Previous Rx's Medication Instructions Recorded Amoxicillin/Potassium Clav 1 each PO Q12HR #28 tab 08/17/18 [Augmentin 875-125 Tablet] Allergies Allergy/AdvReac Type Severity Reaction Status Date / Time No Known Allergies Allergy Verified 02/19/23 11:56 Review of Systems ROS Statement: Those systems with pertinent positive or pertinent negative responses have been documented in the HPI. ROS Other: All systems not noted in ROS Statement are negative. Constitutional: Denies: fever Eyes: Denies: eye pain ENT: Denies: ear pain Respiratory: Denies: dyspnea Cardiovascular: Denies: palpitations Endocrine: Denies: fatigue Gastrointestinal: Denies: abdominal pain Past Medical History Past Medical History: Cancer, Eye Disorder, Hypertension, Osteoarthritis (OA), Prostate Disorder Additional Past Medical History / Comment(s): Dermatomyositis lupus, daily prednisone X15-16 yrs, basal cell skin Ca removed, enlarged prostate, bilateral cataracts, calcified aortic valve, dry eyes. History of Any Multi-Drug Resistant Organisms: None Reported Past Surgical History: Hernia Repair, Joint Replacement, Orthopedic Surgery Additional Past Surgical History / Comment(s): Muscle bx's, left total hip, right knee scope, right inguinal and umbilical hernia repair, right hand carpel tunnel x2, left hand carpel tunnel, hemorrhoidectomy, right knee replaced, cataract surg. Past Anesthesia/Blood Transfusion Reactions: No Reported Reaction Additional Past Anesthesia/Blood Transfusion Reaction / Comment(s): no hx blood transfusion Past Psychological History: Depression Smoking Status: Never smoker Past Alcohol Use History: Occasional Past Drug Use History: None Reported - Past Family History Mother Family Medical History: No Reported History Father Family Medical History: Cancer General Exam Limitations: no limitations General appearance: alert, in no apparent distress Head exam: Present: atraumatic Eye exam: Present: normal appearance Neck exam: Present: normal inspection Respiratory exam: Present: normal lung sounds bilaterally Cardiovascular Exam: Present: regular rate, normal rhythm Extremities exam: Present: other (Wound dehiscence. Distal extremity neurovascular intact.). Absent: tenderness Neurological exam: Present: alert Psychiatric exam: Present: normal affect, normal mood Skin exam: Present: other (Left for wrist with approximately 6 cm wound with dehiscence. No active bleeding.) Course Vital Signs 02/19/23 11:53 Temperature 97.8 F Pulse Rate 89 Respiratory 20 Rate Blood Pressure 129/50 O2 Sat by Pulse 99 Oximetry Procedures - Procedures Initial comment: Left wrist irrigated with 1 L normal saline. Steri-Strips placed with mild approximation. Left short arm wrist volar splint placed. No complications. - Orthopedic Splinting/Casting Injury #1 Side: left Upper Extremity Injury Location: short arm Upper Extremity Immobilizer: wrist splint Medical Decision Making - Medical Decision Making Was pt. sent in by a medical professional or institution (ELISHA Mcnair, [employer], urgent care, hospital, or alf...) When possible be specific @ -No Did you speak to anyone other than the patient for history (EMS, parent, family, police, friend...)? What history was obtained from this source @ - is present and helps provide history including incident Did you review nursing and triage notes (agree or disagree)? Why? @ -I reviewed and agree with nursing and triage notes Were old charts reviewed (outside hosp., previous admission, EMS record, old EKG, old radiological studies, urgent care reports/EKG's, alf records)? Report findings @ -No old charts were reviewed Differential Diagnosis (chest pain, altered mental status, abdominal pain women, abdominal pain men, vaginal bleeding, weakness, fever, dyspnea, syncope, headache, dizziness, GI bleed, back pain, seizure, CVA, palpatations, mental health, musculoskeletal)? @ -Differential Musculoskeletal Muscular strain, contusion, ligament sprain, fracture, arthritis, septic arthritis, bursitis, cellulitis, muscle spasm, nerve compression, DVT, arterial occlusion, herpes zoster, electrolyte abnormality, tumor.... This is not meant to be in all inclusive list EKG interpreted by me (3pts min.). @ -As above X-rays interpreted by me (1pt min.). @ -None done CT interpreted by me (1pt min.). @ -None done U/S interpreted by me (1pt. min.). @ -None done What testing was considered but not performed or refused? (CT, X-rays, U/S, labs)? Why? @ -None What meds were considered but not given or refused? Why? @ -None Did you discuss the management of the patient with other professionals (professionals i.e. ELISHA Mcnair, [employer], lab, RT, psych nurse, social work instructor, administrative professional, teacher, infantry officer, shelter case manager)? Give summary @ -Case was discussed with Dr. Izaguirre who recommends no glue. He does recommend Steri-Strips or sutures and follow-up Tuesday. Was smoking cessation discussed for >3mins.? @ -No Was critical care preformed (if so, how long)? @ -No Were there social determinants of health that impacted care today? How? (Homelessness, low income, unemployed, alcoholism, drug addiction, transportation, low edu. Level, literacy, decrease access to med. care, custodial, rehab)? @ -No Was there de-escalation of care discussed even if they declined (Discuss DNR or withdrawal of care, Hospice)? DNR status @ -No What co-morbidities impacted this encounter? (DM, HTN, Smoking, COPD, CAD, Cancer, CVA, ARF, Chemo, Hep., AIDS, mental health diagnosis, sleep apnea, morbid obesity)? @ -None Was patient admitted / discharged? Hospital course, mention meds given and route, prescriptions, significant lab abnormalities, going to OR and other p ertinent info. @ -Area Steri-Stripped and splint placed. Patient will be discharged with follow-up Tuesday. Undiagnosed new problem with uncertain prognosis? @ -No Drug Therapy requiring intensive monitoring for toxicity (Heparin, Nitro, Insulin, Cardizem)? @ -No Were any procedures done? @ -See above Diagnosis/symptom? @ -Dehiscence, wound Acute, or Chronic, or Acute on Chronic? @ -Acute Uncomplicated (without systemic symptoms) or Complicated (systemic symptoms)? @ -default Side effects of treatment? @ -No Exacerbation, Progression, or Severe Exacerbation? @ -No Poses a threat to life or bodily function? How? (Chest pain, [place], DC, pneumonia, PE, COPD, DKA, ARF, appy, cholecystitis, CVA, Diverticulitis, Homicidal, Suicidal, threat to staff... and all critical care pts) @ -No Disposition Clinical Impression: Wound dehiscence Disposition: HOME SELF-CARE Condition: Stable Instructions (If sedation given, give patient instructions): Wound Dehiscence (ED) Additional Instructions: Please do follow-up Tuesday with your orthopedic surgeon. Return for bleeding, increased pain, fever, worsening or changing symptoms or other concerns. Is patient prescribed a controlled substance at d/c from ED?: No Referrals: Cristiano Escalante MD [Primary Care Provider] - 1-2 days Ana Moore DO [Doctor of Osteopathic Medicine] - 1-2 days Time of Disposition: 13:41
[2023-02-19] MEDS ORDERED: ORPHENADRINE 30 MG/ML 2 ML VIAL IM STA (13:43)
[2023-02-19 14:14] VITALS: BP 146/78; PULSE 80; RESP 18
== END 2023-02-19 13:56 | disposition home or self-care (01) ==
LOC: EC 11:52
DX: T81.30XA Disruption of wound, unspecified, initial encounter (principal); I10 Essential (primary) hypertension; F32.A Depression, unspecified; Z79.899 Other long term (current) drug therapy
CPT/HCPCS: 29125; 99283; 96372; J2360

== ENCOUNTER → 2023-05-27 | Outpatient (CLI) | payer MEDICARE, BC ==
[2023-05-27 15:09] LABS: African American GFR (CKD) >90 (>60 ml/min/1.73 sqM); Blood Urea Nitrogen 20 mg/dL (9-20); Non-African American GFR(CKD) >90 (>60 ml/min/1.73 sqM)
--- NOTE | 2023-05-27 19:15 | CT ---
EXAMINATION TYPE: CT angio chest DATE OF EXAM: 05/27/2023 4:31 PM COMPARISON: 09/11/2021 HISTORY: F/U ANEURYSM CT DLP: 1324 mGycm Automated exposure control for dose reduction was used. CONTRAST: CTA scan of the thorax is performed with IV Contrast, patient injected with 100 mL of Isovue 370, pul monary embolism protocol. . FINDINGS: LUNGS: The lungs are grossly clear, there is no concerning parenchymal mass or nodule identified. There is no pleural effusion or pneumothorax seen. The tracheobronchial tree is patent. MEDIASTINUM: There is satisfactory enhancement of the pulmonary artery and its branches, there is no CT evidence for pulmonary embolism. There are no greater than 1 cm hilar or mediastinal lymph nodes. No pericardial effusion is seen. There is a stable 4 to 4.1 cm fusiform aneurysm of the ascending thoracic aorta. IMPRESSION: 1. NO SUSPICIOUS PULMONARY MASS OR NODULE. 2. NO ACUTE CARDIOPULMONARY DISEASE. 3. STABLE 4 TO 4.1 CM ASCENDING THORACIC AORTIC ANEURYSM.
== END | disposition home or self-care (01) ==
LOC: RADCTMAIN 14:18
PROVIDERS: ATTEND Internal Medicine Interventional Cardiology
DX: I71.21 Aneurysm of the ascending aorta, without rupture (principal)
CPT/HCPCS: 82565; 84520; 71275; 36415; Q9967